=== PATIENT | male | born 1960 | race Caucasian/White ===

== ENCOUNTER → 2018-07-12 | Outpatient (CLI) | payer BC ==
--- NOTE | 2018-07-12 14:02 | US ---
EXAMINATION TYPE: US carotid duplex BILAT DATE OF EXAM: 07/12/2018 COMPARISON: NONE CLINICAL HISTORY: G45.9 Transient cerebral ischemic attack. Periods of Amaurosis fugax EXAM MEASUREMENTS: RIGHT: Peak Systolic Velocity (PSV) cm/sec ----- Right CCA: 93.8 ----- Right ICA: 81.0 ----- Right ECA: 110.5 ICA/CCA ratio: 0.9 RIGHT: End Diastole cm/sec ----- Right CCA: 28.8 ----- Right ICA: 37.0 ----- Right ECA: 110.5 LEFT: Peak Systolic Velocity (PSV) cm/sec ----- Left CCA: 115.1 ----- Left ICA: 63.6 ----- Left ECA: 123.9 ICA/CCA ratio: 0.6 LEFT: End Diastole cm/sec ----- Left CCA: 33.3 ----- Left ICA: 17.4 ----- Left ECA: 31.3 VERTEBRALS (direction of flow): Right Vertebral: Antegrade Left Vertebral: Antegrade Rhythm: Normal Mild amount of plaque visualized bilaterally. No elevated velocities visualized IMPRESSION: 1. Mild atherosclerotic changes with no significant hemodynamic stenosis. Criteria for Assigning % of Stenosis / Diameter reduction (Estimation based on the indirect measurements of the internal carotid artery velocities (ICA PSV). 1. Normal (no stenosis)=ICA PSV < 125 cm/s: ratio < 2.0: ICA EDV<40 cm/s. 2. Less than 50% stenosis=ICA PSV < 125 cm/s: ratio < 2.0: ICA EDV<40 cm/s. 3. 50 to 69% stenosis=ICA PSV of 125 to 230 cm/s: ration 2.0 ? 4.0: ICA EDV 40-100 cm/s. 4. Greater than 70% stenosis to near occlusion= ICA PSV > 230 cm/s: ratio > 4.0: ICA EDV > 100 cm/s. 5. Near occlusion= ICA PSV velocities may be low or undetectable: variable ratio and ICA EDV. 6. Total occlusion=unable to detect flow.
== END | disposition home or self-care (01) ==
LOC: RADUSWWP 12:15
PROVIDERS: ATTEND Family Medicine
DX: G45.9 Transient cerebral ischemic attack, unspecified (principal)
CPT/HCPCS: 93880; 95816

== ENCOUNTER 2018-07-13 19:25 | Emergency (ER) | payer BC ==
[2018-07-13 19:34] VITALS: RESP 18
[2018-07-13] MEDS ORDERED: DIPH,PERTUS(ACELL)TETVAC-LF 0.5 ML VIAL IM ONE (20:00)
[2018-07-13] MEDS ORDERED: MORPHINE SULFATE 4 MG/ML SYRINGE IM STA (20:00)
--- NOTE | 2018-07-13 20:16 | ED ---
General Adult HPI - General Chief complaint: Fall Stated complaint: Fell injury to chest area Time Seen by Provider: 07/13/18 19:30 Source: patient, RN notes reviewed Mode of arrival: ambulatory Limitations: no limitations - History of Present Illness Initial comments: This a 57-year-old male who presents to the emergency department complaining of having fallen last night. Patient states he tripped over a construction site that he didn't see because he was in the pitch black. Patient states he did not hit his head or neck has no head or neck pain today. Patient's main complaint is chest pain because he landed on a round metal object. Patient also has some abrasions and contusions to his legs and a superficial laceration of the distal aspect of the right leg. Patient states all of his lower extremity upper extremities move without pain and move full range of motion. Patient denies any shortness of breath. Patient states the chest pain hurts on the right lateral aspect in particular with deep breathing coughing or sneezing. Patient states the pain is also reproducible to palpation. - Related Data Home Medications Medication Instructions Recorded Confirmed Allopurinol [Zyloprim] 300 mg PO DAILY 07/13/18 07/13/18 Aspirin [Adult Low Dose Aspirin EC] 162 mg PO DAILY 07/13/18 07/13/18 Atenolol/Chlorthalidone 1 tab PO DAILY 07/13/18 07/13/18 [Atenolol-Chlorthalidone 50-25] Escitalopram [Lexapro] 10 mg PO DAILY 07/13/18 07/13/18 Gemfibrozil [Lopid] 600 mg PO BID 07/13/18 07/13/18 Multivitamins, Thera [Multivitamin 1 tab PO DAILY 07/13/18 07/13/18 (formulary)] Previous Rx's Medication Instructions Recorded Hydrocodone/Acetaminophen [[place] 1 each PO Q4HR PRN #14 tab 07/13/18 5-325] Allergies Allergy/AdvReac Type Severity Reaction Status Date / Time ibuprofen [From Advil] Allergy Rash/Hives Verified 07/13/18 20:08 Review of Systems ROS Statement: Those systems with pertinent positive or pertinent negative responses have been documented in the HPI. ROS Other: All systems not noted in ROS Statement are negative. Past Medical History Past Medical History: Hyperlipidemia, Hypertension History of Any Multi-Drug Resistant Organisms: None Reported Past Surgical History: No Surgical Hx Reported Past Psychological History: No Psychological Hx Reported Smoking Status: Never smoker Past Alcohol Use History: None Reported, Occasional Past Drug Use History: None Reported General Exam - General Exam Comments Initial Comments: GENERAL: Patient is well-developed and well-nourished. Patient is nontoxic and well- hydrated and is in mild distress. ENT: Neck is soft and supple. No significant lymphadenopathy is noted. Oropharynx is clear. Moist mucous membranes. Neck has full range of motion without eliciting any pain. EYES: The sclera were anicteric and conjunctiva were pink and moist. Extraocular movements were intact and pupils were equal round and reactive to light. Eyelids were unremarkable. PULMONARY: Unlabored respirations. Good breath sounds bilaterally. No audible rales rhonchi or wheezing was noted. CARDIOVASCULAR: There is a regular rate and rhythm without any murmurs gallops or rubs. Patient states she is of superficial abrasion from the right lateral to the anterior left chest wall it's significantly tender in the right lateral aspect at the level of the nipple. ABDOMEN: Soft and nontender with normal bowel sounds. No palpable organomegaly was noted. There is no palpable pulsatile mass. SKIN: Patient has multiple contusions to bilateral legs and a superficial laceration to the distal right leg. Appears to be healing fine NEUROLOGIC: Patient is alert and oriented x3. Cranial nerves II through XII are grossly intact. Motor and sensory are also intact. Normal speech, volume and content. Symmetrical smile. MUSCULOSKELETAL: Normal extremities with adequate strength and full range of motion. No lower extremity swelling or edema. No calf tenderness. LYMPHATICS: No significant lymphadenopathy is noted PSYCHIATRIC: Normal psychiatric evaluation. Limitations: no limitations Course Vital Signs 07/13/18 19:30 Temperature 98.5 F Pulse Rate 71 Respiratory 18 Rate Blood Pressure 132/89 O2 Sat by Pulse 98 Oximetry Disposition Clinical Impression: Rib fracture Disposition: HOME SELF-CARE Condition: Good Instructions: Rib Fracture (ED), Fall Prevention for Older Adults (ED) Prescriptions: Hydrocodone/Acetaminophen [[place] 5-325] 1 each PO Q4HR PRN #14 tab PRN Reason: Pain Is patient prescribed a controlled substance at d/c from ED?: Yes When asked, does pt state using other controlled substances?: No If prescribed controlled substance>3 days was MAPS reviewed?: Prescribed <3 Days If opioid is for acute pain is fill amount 7 days or less?: Yes If Rx opioid, was Start Talking consent form obtained?: Yes Referrals: Casey Bellamy MD [Primary Care Provider] - 1-2 days Time of Disposition: 20:49
--- NOTE | 2018-07-13 20:36 | XR ---
EXAMINATION TYPE: XR chest 2V DATE OF EXAM: 07/13/2018 COMPARISON: NONE HISTORY: Chest pain TECHNIQUE: Frontal and lateral views of the chest are obtained. FINDINGS: Heart and mediastinum are normal. Lungs are clear. Diaphragm is normal. Bony thorax appear s normal. IMPRESSION: Normal chest.
[2018-07-13 21:26] VITALS: BP 123/79; PULSE 64; TEMP 98.3
== END 2018-07-13 21:25 | disposition home or self-care (01) ==
LOC: EC 19:25
DX: S22.32XA Fracture of one rib, left side, initial encounter for closed fracture (principal); S81.811A Laceration without foreign body, right lower leg, initial encounter; S80.12XA Contusion of left lower leg, initial encounter; E78.5 Hyperlipidemia, unspecified; I10 Essential (primary) hypertension; Z23 Encounter for immunization; Z79.82 Long term (current) use of aspirin; Z79.899 Other long term (current) drug therapy; Z88.6 Allergy status to analgesic agent; W01.0XXA Fall on same level from slipping, tripping and stumbling without subsequent striking against object, initial encounter; Y92.89 Other specified places as the place of occurrence of the external cause
CPT/HCPCS: 71046; 90715; 99283; 90471; J2270

== ENCOUNTER 2023-02-15 08:51 | Inpatient (IN) | payer BC ==
[2023-02-15] MEDS ORDERED: ONDANSETRON 4 MG/2 ML VIAL IVP STA (09:25)
[2023-02-15] MEDS ORDERED: ASPIRIN 81 MG PO STA (09:25)
[2023-02-15] MEDS ORDERED: SODIUM CHLORIDE 0.9% 1,000 ML IV STA (09:25)
[2023-02-15] MEDS ORDERED: HYDROmorphone 1 MG/ML 1 ML SYRINGE IVP STA (09:25)
[2023-02-15] MEDS ORDERED: FAMOTIDINE 20 MG/2 ML VIAL IV STA (09:25)
--- NOTE | 2023-02-15 09:29 | ED ---
General Adult HPI - General Chief complaint: Chest Pain Stated complaint: rib pain Time Seen by Provider: 02/15/23 09:08 Source: patient, family, RN notes reviewed Mode of arrival: ambulatory Limitations: no limitations - History of Present Illness Initial comments: Patient is a pleasant 62-year-old male presenting to the emergency department concern for bilateral lower rib discomfort. Onset was while eating dinner last night. Discomfort has been persistent since that time. Discomfort is somewhat positional. Patient has had some nausea. No dyspnea however states it does hurt to take deep breaths. No diaphoresis. No history of similar symptoms previously. No fever. Patient states there is some discomfort of the back as well. - Related Data Home Medications Medication Instructions Recorded Confirmed Atenolol/Chlorthalidone 1 tab PO W/LUNCH 07/13/18 02/15/23 [Atenolol-Chlorthalidone 50-25] allopurinoL [Zyloprim] 300 mg PO W/LUNCH 07/13/18 02/15/23 Fenofibrate Nanocrystallized 145 mg PO W/LUNCH 02/15/23 02/15/23 [Fenofibrate] lisinopriL [Prinivil] 10 mg PO W/LUNCH 02/15/23 02/15/23 Allergies Allergy/AdvReac Type Severity Reaction Status Date / Time ibuprofen [From Advil] Allergy Rash/Hives Verified 02/15/23 11:16 Review of Systems ROS Statement: Those systems with pertinent positive or pertinent negative responses have been documented in the HPI. ROS Other: All systems not noted in ROS Statement are negative. Constitutional: Denies: fever, chills Eyes: Denies: eye pain ENT: Denies: ear pain Respiratory: Reports: as per HPI. Denies: cough Cardiovascular: Reports: as per HPI, chest pain Endocrine: Denies: fatigue Gastrointestinal: Reports: nausea. Denies: abdominal pain Genitourinary: Denies: dysuria Musculoskeletal: Reports: as per HPI Skin: Denies: rash Neurological: Denies: weakness Past Medical History Past Medical History: Hyperlipidemia, Hypertension History of Any Multi-Drug Resistant Organisms: None Reported Past Surgical History: No Surgical Hx Reported Past Psychological History: No Psychological Hx Reported Smoking Status: Never smoker Past Alcohol Use History: Occasional Past Drug Use History: None Reported General Exam Limitations: no limitations General appearance: alert Head exam: Present: normocephalic Eye exam: Present: normal appearance Neck exam: Present: normal inspection Respiratory exam: Present: normal lung sounds bilaterally, chest wall tenderness Cardiovascular Exam: Present: regular rate, normal rhythm Expanded Peripheral pulses: 2+: Dorsalis Pedis (R), Dorsalis Pedis (L) GI/Abdominal exam: Present: soft, tenderness (Moderate tenderness right upper quadrant). Absent: distended Extremities exam: Present: normal inspection. Absent: pedal edema, calf tenderness Back exam: Present: normal inspection. Absent: tenderness Neurological exam: Present: alert Psychiatric exam: Present: normal affect, normal mood Skin exam: Present: normal color Course Vital Signs 02/15/23 02/15/23 02/15/23 09:04 10:30 11:27 Temperature 99.2 F Pulse Rate 98 86 83 Respiratory 20 18 18 Rate Blood Pressure 110/76 133/84 138/95 O2 Sat by Pulse 94 L 93 L 96 Oximetry EKG Findings - EKG Results: EKG: interpreted by ERMD (Left axis. Inferior Q waves. Poor R-wave progres pepper. No acute ST change.), sinus rhythm Medical Decision Making - Medical Decision Making Was pt. sent in by a medical professional or institution (, PA, MUSIC VIDEO PRODUCER, urgent care, hospital, or prison...) When possible be specific @ -No Did you speak to anyone other than the patient for history (EMS, parent, family, police, friend...)? What history was obtained from this source @ - is present and helps provide history including onset while eating Did you review nursing and triage notes (agree or disagree)? Why? @ -I reviewed and agree with nursing and triage notes Were old charts reviewed (outside hosp., previous admission, EMS record, old EKG, old radiological studies, urgent care reports/EKG's, prison records)? Report findings @ -No old charts were reviewed Differential Diagnosis (chest pain, altered mental status, abdominal pain women, abdominal pain men, vaginal bleeding, weakness, fever, dyspnea, syncope, headache, dizziness, GI bleed, back pain, seizure, CVA, palpatations, mental health)? @ -Differential Chest Pain: Stable Angina, Unstable Angina, STEMI, NSTEMI Aortic Dissection, Pneumothorax, Musculoskeletal, Esophageal Spasm GERD, Cholecystitis, Pancreatitis, Zoster, this is not meant to be an all-inclusive list. EKG interpreted by me (3pts min.). @ -As above X-rays interpreted by me (1pt min.). @ -Chest x-ray shows nonspecific bilateral basilar changes. CT interpreted by me (1pt min.). @ -Computed tomography scan also took by myself that shows mediastinal air. U/S interpreted by me (1pt. min.). @ -Report reviewed What testing was considered but not performed or refused? (CT, X-rays, U/S, labs)? Why? @ -None What meds were considered but not given or refused? Why? @ -None Did you discuss the management of the patient with other professionals (professionals i.e. Dr., PA, MUSIC VIDEO PRODUCER, lab, RT, psych nurse, social psychologist, roentgenologist, teacher, corporate security officer, piano case and bench assembler)? Give summary @ -Case was discussed with Dr. Umana, who will admit covering Dr. Bellamy. He agrees with consult with cardiothoracic and GI Was smoking cessation discussed for >3mins.? @ -No Was critical care preformed (if so, how long)? @ -No Were there social determinants of health that impacted care today? How? (Homelessness, low income, unemployed, alcoholism, drug addiction, transportation, low edu. Level, literacy, decrease access to med. care, [facility], rehab)? @ -No Was there de-escalation of care discussed even if they declined (Discuss DNR or withdrawal of care, Hospice)? DNR status @ -No What co-morbidities impacted this encounter? (DM, HTN, Smoking, COPD, CAD, Cancer, CVA, ARF, Chemo, Hep., AIDS, mental health diagnosis, sleep apnea, morbid obesity)? @ -None Was patient admitted / discharged? Hospital course, mention meds given and ro [place], prescriptions, significant lab abnormalities, going to OR and other pertinent info. @ -Patient reevaluated and somewhat improved. Discomfort only with movement however severe that time. Patient is updated regarding results and plan. Patient will be admitted for further evaluation regarding pneumomediastinum Undiagnosed new problem with uncertain prognosis? @ -No Drug Therapy requiring intensive monitoring for toxicity (Heparin, Nitro, Insulin, Cardizem)? @ -No Were any procedures done? @ -No Diagnosis/symptom? @ -Pneumomediastinum Acute, or Chronic, or Acute on Chronic? @ -Acute Uncomplicated (without systemic symptoms) or Complicated (systemic symptoms)? @ -default Side effects of treatment? @ -No Exacerbation, Progression, or Severe Exacerbation? @ -No Poses a threat to life or bodily function? How? (Chest pain, [place], [place], pneumonia, PE, COPD, DKA, ARF, appy, cholecystitis, CVA, Diverticulitis, Homicidal, Suicidal, threat to staff... and all critical care pts) @ -No - Lab Data Result diagrams: 02/15/23 09:43 02/15/23 09:43 Lab Results 02/15/23 02/15/23 02/15/23 Range/Units 09:43 09:43 09:43 WBC 17.8 H (3.8-10.6) k/uL RBC 4.60 (4.30-5.90) m/uL Hgb 15.8 (13.0-17.5) gm/dL Hct 43.0 (39.0-53.0) % MCV 93.6 (80.0-100.0) fL MCH 34.5 (25.0-35.0) pg MCHC 36.8 (31.0-37.0) g/dL RDW 12.9 (11.5-15.5) % Plt Count 225 (150-450) k/uL MPV 8.2 Neutrophils % 89 % Lymphocytes % 5 % Monocytes % 5 % Eosinophils % 0 % Basophils % 0 % Neutrophils # 15.8 H (1.3-7.7) k/uL Lymphocytes # 0.8 L (1.0-4.8) k/uL Monocytes # 0.9 (0-1.0) k/uL Eosinophils # 0.1 (0-0.7) k/uL Basophils # 0.0 (0-0.2) k/uL PT 9.5 (9.0-12.0) sec INR 0.9 (<1.2) APTT 22.3 (22.0-30.0) sec D-Dimer 3.36 H (<0.60) mg/L FEU Sodium 130 L (137-145) mmol/L Potassium 3.7 (3.5-5.1) mmol/L Chloride 97 L (98-107) mmol/L Carbon Dioxide 22 (22-30) mmol/L Anion Gap 11 mmol/L BUN 17 (9-20) mg/dL Creatinine 0.81 (0.66-1.25) mg/dL Est GFR (CKD-EPI)AfAm >90 (>60 ml/min/1.73 sqM) Est GFR (CKD-EPI)NonAf >90 (>60 ml/min/1.73 sqM) Glucose 139 H (74-99) mg/dL Calcium 9.2 (8.4-10.2) mg/dL Magnesium 1.7 (1.6-2.3) mg/dL Total Bilirubin 1.7 H (0.2-1.3) mg/dL AST 32 (17-59) U/L ALT 26 (4-49) U/L Alkaline Phosphatase 40 (38-126) U/L Troponin I (0.000-0.034) ng/mL Total Protein 7.1 (6.3-8.2) g/dL Albumin 4.0 (3.5-5.0) g/dL Amylase 91 (30-110) U/L Lipase 21 L (23-300) U/L 02/15/23 Range/Units 09:43 WBC (3.8-10.6) k/uL RBC (4.30-5.90) m/uL Hgb (13.0-17.5) gm/dL Hct (39.0-53.0) % MCV (80.0-100.0) fL MCH (25.0-35.0) pg MCHC (31.0-37.0) g/dL RDW (11.5-15.5) % Plt Count (150-450) k/uL MPV Neutrophils % % Lymphocytes % % Monocytes % % Eosinophils % % Basophils % % Neutrophils # (1.3-7.7) k/uL Lymphocytes # (1.0-4.8) k/uL Monocytes # (0-1.0) k/uL Eosinophils # (0-0.7) k/uL Basophils # (0-0.2) k/uL PT (9.0-12.0) sec INR (<1.2) APTT (22.0-30.0) sec D-Dimer (<0.60) mg/L FEU Sodium (137-145) mmol/L Potassium (3.5-5.1) mmol/L Chloride (98-107) mmol/L Carbon Dioxide (22-30) mmol/L Anion Gap mmol/L BUN (9-20) mg/dL Creatinine (0.66-1.25) mg/dL Est GFR (CKD-EPI)AfAm (>60 ml/min/1.73 sqM) Est GFR (CKD-EPI)NonAf (>60 ml/min/1.73 sqM) Glucose (74-99) mg/dL Calcium (8.4-10.2) mg/dL Magnesium (1.6-2.3) mg/dL Total Bilirubin (0.2-1.3) mg/dL AST (17-59) U/L ALT (4-49) U/L Alkaline Phosphatase (38-126) U/L Troponin I <0.012 (0.000-0.034) ng/mL Total Protein (6.3-8.2) g/dL Albumin (3.5-5.0) g/dL Amylase (30-110) U/L Lipase (23-300) U/L Disposition Clinical Impression: Pneumomediastinum Disposition: ADMITTED IP TO THIS HOSP Is patient prescribed a controlled substance at d/c from ED?: No Referrals: Casey Bellamy MD [Primary Care Provider] - 1-2 days Time of Disposition: 12:48
--- NOTE | 2023-02-15 09:55 | XR ---
EXAMINATION TYPE: XR chest 2V DATE OF EXAM: 02/15/2023 COMPARISON: 07/13/2018 HISTORY: Chest pain and shortness of breath since last night, rib pain TECHNIQUE: Frontal and lateral views of the chest are obtained. FINDINGS: The heart size is normal. The pulmonary vasculature is within normal limits. There are new interstiti al and airspace opacities at the bilateral lower lung zones. There is no significant pleural effusion . There is no pneumothorax. IMPRESSION: Bibasilar airspace and interstitial opacities. This finding could relate to multifocal p neumonia or atelectasis. Recommend follow-up chest radiograph since 6-8 weeks to ensure complete reso lution.
[2023-02-15 09:57] LABS: Basophils % (A) 0 %; Eosinophils # (A) 0.1 k/uL (0-0.7); Eosinophils % (A) 0 %; HGB 15.8 gm/dL (13.0-17.5); Lymphocytes # (A) 0.8 k/uL (1.0-4.8); Lymphocytes % (A) 5 %; MCH 34.5 pg (25.0-35.0); MCHC 36.8 g/dL (31.0-37.0); MCV 93.6 fL (80.0-100.0); Mean Platelet Volume 8.2; Monocytes # (A) 0.9 k/uL (0-1.0); Monocytes % (A) 5 %; Neutrophils # (A) 15.8 k/uL (1.3-7.7); Neutrophils % (A) 89 %; Platelet Count 225 k/uL (150-450); RDW 12.9 % (11.5-15.5); WBC 17.8 k/uL (3.8-10.6)
[2023-02-15 10:13] LABS: ALT 26 U/L (4-49); AST 32 U/L (17-59); African American GFR (CKD) >90 (>60 ml/min/1.73 sqM); Alkaline Phosphatase 40 U/L (38-126); Amylase 91 U/L (30-110); Anion Gap 11 mmol/L; Blood Urea Nitrogen 17 mg/dL (9-20); Calcium 9.2 mg/dL (8.4-10.2); Carbon Dioxide 22 mmol/L (22-30); Chloride 97 mmol/L (98-107); Glucose 139 mg/dL (74-99); Lipase 21 U/L (23-300); Magnesium 1.7 mg/dL (1.6-2.3); Non-African American GFR(CKD) >90 (>60 ml/min/1.73 sqM); Potassium 3.7 mmol/L (3.5-5.1); Sodium 130 mmol/L (137-145); Total Bilirubin 1.7 mg/dL (0.2-1.3); Total Protein 7.1 g/dL (6.3-8.2)
[2023-02-15 10:20] LABS: INR 0.9 (<1.2); Partial Thromboplastin Time 22.3 sec (22.0-30.0); Prothrombin Time 9.5 sec (9.0-12.0)
--- NOTE | 2023-02-15 10:53 | US ---
EXAMINATION TYPE: US gallbladder DATE OF EXAM: 02/15/2023 COMPARISON: NONE CLINICAL INDICATION: Male, 62 years old with history of pain; Pain. TECHNIQUE: Multiple sonographic images of the right upper quadrant are obtained. FINDINGS: EXAM MEASUREMENTS: Liver Length: 16.3 cm Gallbladder Wall: 0.2 cm Right Kidney: 11.4 x 5.4 x 5.1 cm RADIOLOGY CLERK NOTES: Limited exam due to overlying bowel gas Pancreas: Obscured by bowel gas Liver: The liver demonstrates a noncirrhotic morphology. There is no obvious focal hepatic mass. Th ere is no intrahepatic biliary duct dilatation. Gallbladder: Multiple mobile echogenic foci. No wall thickening. Evidence for sonographic Quesada's sign: neg CBD: Obscured by overlying bowel gas Right Kidney: Lateral cortical anechoic lesion = 0.9 x 1.0 x 0.8 cm. This finding is most compatible with a tiny renal cyst. IMPRESSION: 1. Cholelithiasis without evidence of acute cholecystitis. 2. No acute sonographic abnormality identified.
--- NOTE | 2023-02-15 11:04 | CT ---
EXAMINATION TYPE: CT angio chest CT DLP: 482 mGycm, Automated exposure control for dose reduction was used. DATE OF EXAM: 02/15/2023 10:45 AM COMPARISON: Chest radiograph from same day. CLINICAL INDICATION:Male, 62 years old with history of cp; PE TECHNIQUE/CONTRAST: CTA scan of the thorax is performed with IV Contrast, patient injected with 75 mL of Isovue 370, pulm onary embolism protocol. MIP images are created and reviewed these are created on a separate worksta tion.. FINDINGS: Pulmonary Artery: There is no evidence for a filling defect within the pulmonary vasculature to sugge st acute pulmonary embolism. The pulmonary artery is of normal size. Lungs/Pleura: Trace bilateral pleural effusions right greater than left. Bibasilar atelectasis change s are noted. Mild pulmonary vascular prominence. No evidence for pneumothorax Airway: Large airways are patent. Heart: The heart is mildly enlarged for size. There is coronary artery calcifications. Vasculature: No evidence of aortic aneurysm. Mediastinum: No gross evidence of adenopathy. There is pneumomediastinum tracking up into the neck. Musculoskeletal: No acute osseous abnormalities Soft Tissues: Unremarkable. Lower neck: No significant findings. Upper Abdomen: No significant findings. IMPRESSION: 1. No evidence of pulmonary embolism. 2. Pneumomediastinum with gas tracking into the neck and down into the upper abdomen. Correlate for p erforated airway versus hollow viscus. 3. Cardiomegaly with trace bilateral pleural effusions, correlate with serum BNP for congestive heart failure. Findings communicated to Dr. Eliecer Aly DO on 02/15/2023 11:[address] Raymundo Lemos.
[2023-02-15] MEDS ORDERED: HYDROmorphone 0.5 MG/0.5 ML SYRINGE IVP PRN (12:51)
[2023-02-15] MEDS ORDERED: NALOXONE 0.4 MG/ML 1 ML VIAL IV PRN (12:51)
[2023-02-15] MEDS ORDERED: ONDANSETRON 4 MG/2 ML VIAL IVP PRN (12:51)
[2023-02-15] MEDS: SODIUM CHLORIDE 0.9% 1,000 ML IV SCH ×2 (13:22→19:45)
[2023-02-15] MEDS: PANTOPRAZOLE 40 MG/10 ML VIAL IV SCH (13:25)
[2023-02-15] MEDS ORDERED: AMPICILLIN-SULBACTAM 1.5 GM in SODIUM CHLORIDE 0.9% 50 ML IVPB ONE (13:30)
--- NOTE | 2023-02-15 17:25 | P.GSCN ---
History of Present Illness Consult date: 02/15/23 Reason for Consult: Pneumomediastinum Requesting physician: Kalani Escalona History of present illness: Patient is a 62's old gentleman with past medical history of hypertension hyperlipidemia and gout who was admitted to the emergency today with complaints of lower bilateral rib pain. Patient states that he had dinner last night and a restaurant where he had soup and Pasta and when he tried to drink subsequent to that he could not swallow. He subsequently started feeling bilateral lower chest pain. He denies nausea or vomiting, retching, coughing, sneezing that proceeded his symptoms. He is a nonsmoker with no prior pulmonary dysfunction. A CT a done in the emergency room this morning ruled out pulmonary embolism and showed evidence of pneumomediastinum tracking in the neck and even in the upper abdomen with no major pleural effusions. I was approached around 4:[address] ESCALONA from [facility] asking me my opinion regarding this case. It was evident that the patient require to start with Gastrografin swallow to rule out any obvious esophageal perforation. Patient denied any history of GERD and or previous dysphagia. Review of Systems Negative except for the history of present tenderness Past Medical History Past Medical History: Hyperlipidemia, Hypertension History of Any Multi-Drug Resistant Organisms: None Reported Past Surgical History: No Surgical Hx Reported Past Psychological History: No Psychological Hx Reported Smoking Status: Never smoker Past Alcohol Use History: Occasional Past Drug Use History: None Reported Medications and Allergies Home Medications Medication Instructions Recorded Confirmed Type Atenolol/Chlorthalidone 1 tab PO W/LUNCH 07/13/18 02/15/23 History [Atenolol-Chlorthalidone 50-25] allopurinoL [Zyloprim] 300 mg PO W/LUNCH 07/13/18 02/15/23 History Fenofibrate Nanocrystallized 145 mg PO W/LUNCH 02/15/23 02/15/23 History [Fenofibrate] lisinopriL [Prinivil] 10 mg PO W/LUNCH 02/15/23 02/15/23 History Allergies Allergy/AdvReac Type Severity Reaction Status Date / Time ibuprofen [From Advil] Allergy Rash/Hives Verified 02/15/23 11:16 Surgical - Exam Vital Signs Temp Pulse Resp BP Pulse Ox 99.2 F 98 20 110/76 94 L 02/15/23 09:04 02/15/23 09:04 02/15/23 09:04 02/15/23 09:04 02/15/23 09:04 Results - Labs 02/15/23 09:43 02/15/23 09:43 Abnormal Lab Results - Last 24 Hours (Table) 02/15/23 02/15/23 02/15/23 Range/Units 09:43 09:43 09:43 WBC 17.8 H (3.8-10.6) k/uL Neutrophils # 15.8 H (1.3-7.7) k/uL Lymphocytes # 0.8 L (1.0-4.8) k/uL D-Dimer 3.36 H (<0.60) mg/L FEU Sodium 130 L (137-145) mmol/L Chloride 97 L (98-107) mmol/L Glucose 139 H (74-99) mg/dL Total Bilirubin 1.7 H (0.2-1.3) mg/dL Lipase 21 L (23-300) U/L Diabetes panel 02/15/23 Range/Units 09:43 Sodium 130 L (137-145) mmol/L Potassium 3.7 (3.5-5.1) mmol/L Chloride 97 L (98-107) mmol/L Carbon Dioxide 22 (22-30) mmol/L BUN 17 (9-20) mg/dL Creatinine 0.81 (0.66-1.25) mg/dL Glucose 139 H (74-99) mg/dL Calcium 9.2 (8.4-10.2) mg/dL AST 32 (17-59) U/L ALT 26 (4-49) U/L Alkaline Phosphatase 40 (38-126) U/L Total Protein 7.1 (6.3-8.2) g/dL Albumin 4.0 (3.5-5.0) g/dL Calcium panel 02/15/23 Range/Units 09:43 Calcium 9.2 (8.4-10.2) mg/dL Albumin 4.0 (3.5-5.0) g/dL Pituitary panel 02/15/23 Range/Units 09:43 Sodium 130 L (137-145) mmol/L Potassium 3.7 (3.5-5.1) mmol/L Chloride 97 L (98-107) mmol/L Carbon Dioxide 22 (22-30) mmol/L BUN 17 (9-20) mg/dL Creatinine 0.81 (0.66-1.25) mg/dL Glucose 139 H (74-99) mg/dL Calcium 9.2 (8.4-10.2) mg/dL Adrenal panel 02/15/23 Range/Units 09:43 Sodium 130 L (137-145) mmol/L Potassium 3.7 (3.5-5.1) mmol/L Chloride 97 L (98-107) mmol/L Carbon Dioxide 22 (22-30) mmol/L BUN 17 (9-20) mg/dL Creatinine 0.81 (0.66-1.25) mg/dL Glucose 139 H (74-99) mg/dL Calcium 9.2 (8.4-10.2) mg/dL Total Bilirubin 1.7 H (0.2-1.3) mg/dL AST 32 (17-59) U/L ALT 26 (4-49) U/L Alkaline Phosphatase 40 (38-126) U/L Total Protein 7.1 (6.3-8.2) g/dL Albumin 4.0 (3.5-5.0) g/dL Assessment and Plan Assessment: Patient with pneumomediastinum. I was physically present when his Gastrografin swallow was performed. There is no evidence of extravasation and the contrast progresses normally to the stomach and beyond with no delay. This study cannot rule out microperforation. In any event, we'll await GI recommendation however I would recommend keeping the patient nothing by mouth with adequate hydration, antibiotic therapy, H2 blockers and follow him clinically. If he improves clinically by the morning he could theoretically be started on liquid and advance as tolerated. Repeat chest x-ray in the morning. Thank you for the privilege of this consultation (1) Pneumomediastinum Current Visit: Yes Status: Acute Code(s): J98.2 - INTERSTITIAL EMPHYSEMA SNOMED Code(s): 47645143 Time with Patient: Greater than 30
--- NOTE | 2023-02-15 17:45 | P.HPIM ---
History of Present Illness H&P Date: 02/15/23 62-year-old male with PMH of hypertension, dyslipidemia, gout presents the ED for abdominal pain that suddenly started yesterday around 6 PM. Patient was at a restaurant eating pasta when he noted sudden onset sharp and stabbing right upper quadrant abdominal pain that radiated across his abdomen. Pain was 10 out of 10 in severity. Pain is constant but eventually subsided. Overnight, he continued to experience abdominal discomfort which prompted him to go to the ED. He denies any excessive vomiting. He denies swallowing any hard or sharp objects. He is a lifelong nonsmoker. He currently reports abdominal pain that is 5 out of 10 in severity. He denies any headache, lower extremity edema, fever or chills, cough, chest pain, shortness of breath, palpitations, changes in urination or bowel habits. No changes in appetite or weight. He denies any dizziness, numbness/weakness/tingling of extremities. In the ED, his vital signs are stable, initially tachycardic in the high 90s. CBC showed leukocytosis of 17.8. Coagulation panel within normal limits. D-dimer elevated at 3.36. CMP showed sodium of 130, chloride of 97, glucose 139, total bilirubin of 1.7. Amylase and lipase within normal limits. Troponin less than 0.012. EKG showed sinus rhythm with ventricular rate of 94. Gallbladder ultrasound shows cholelithiasis without acute cholecystitis. CTA chest showed no PE, pneumomediastinum with gas tracking into the neck and down into the upper abdomen, cardiomegaly with trace bilateral pleural effusion. Patient is admitted for further workup of radiologic findings. Pertinent positives and negatives as discussed in HPI, a complete review of systems was performed and all other systems are negative. General: non toxic, no distress, appears at stated age Derm: warm, dry Head: atraumatic, normocephalic, symmetric Eyes: EOMI, no lid lag, anicteric sclera Mouth: no lip lesion, mucus membranes moist Cardiovascular: S1S2 reg, no murmur Lungs: CTA bilateral, no rhonchi, no rales , no accessory muscle use Abdominal: soft, nontender to palpation, no guarding, no appreciable organomegaly Ext: no gross muscle atrophy, no edema, no contractures Neuro: no focal neuro deficits Psych: Alert, oriented, appropriate affect Abdominal pain Pneumomediastinum Cholelithiasis SIRS Hyponatremia Elevated total bilirubin Based on my assessment of this patient, this patient meets a high complexity level of care. I have reviewed the following outside sales consultant notes: None. I have reviewed the results of the following tests: CBC showed leukocytosis of 17.8. Coagulation panel within normal limits. D- dimer elevated at 3.36. CMP showed sodium of 130, chloride of 97, glucose 139, total bilirubin of 1.7. Amylase and lipase within normal limits. Troponin less than 0.012. Gallbladder ultrasound shows cholelithiasis without acute cholecystitis. CTA chest showed no PE, pneumomediastinum with gas tracking into the neck and down into the upper abdomen, cardiomegaly with trace bilateral pleural effusion. I have ordered the following tests: Gastrografin esophagram. I have discussed the care of this patient with the following independent historian: None. I have independently interpreted the following test below: EKG showed sinus rhythm with ventricular rate of 94. I have discussed the management of this patient with the following physician: The case was discussed with Dr. Mcdonough around 4:30PM and Gastrografin esophagram was ordered. No obvious esophageal perforation was seen. This patient has a high risk of morbidity due to the following reasons: Patient has an acute diagnosis of pneumomediastinum that poses a threat to life or bodily function. The case was discussed with Dr. Mcdonough around 4:30PM and Gastrografin esophagram was ordered. No obvious esophageal perforation was seen. Patient be started on Protonix 40 mg IV daily. Pain control with Dilaudid 1 mg IV every 3 hours as needed for severe pain. Given his leukocytosis and the fact that he meets SIRS criteria, he will be empirically treated with Unasyn 1.5 g IV every 6 hours. Telemetry monitoring will be ordered. He'll be kept nothing by mouth. Cardiothoracic surgery, general surgery and gastroenterology is on board. We will hold any oral home medications at this time. Patient names his decision maker if he can't make decisions for himself. Patient would like to be full code. Past Medical History Past Medical History: Hyperlipidemia, Hypertension History of Any Multi-Drug Resistant Organisms: None Reported Past Surgical History: No Surgical Hx Reported Past Psychological History: No Psychological Hx Reported Smoking Status: Never smoker Past Alcohol Use History: Occasional Past Drug Use History: None Reported Medications and Allergies Home Medications Medication Instructions Recorded Confirmed Type Atenolol/Chlorthalidone 1 tab PO W/LUNCH 07/13/18 02/15/23 History [Atenolol-Chlorthalidone 50-25] allopurinoL [Zyloprim] 300 mg PO W/LUNCH 07/13/18 02/15/23 History Fenofibrate Nanocrystallized 145 mg PO W/LUNCH 02/15/23 02/15/23 History [Fenofibrate] lisinopriL [Prinivil] 10 mg PO W/LUNCH 02/15/23 02/15/23 History Allergies Allergy/AdvReac Type Severity Reaction Status Date / Time ibuprofen [From Advil] Allergy Rash/Hives Verified 02/15/23 11:16 Physical Exam Vitals: Vital Signs Temp Pulse Resp BP Pulse Ox 02/15/23 17:34 98.9 F 84 18 136/92 94 L 02/15/23 16:08 87 18 131/81 95 02/15/23 13:17 87 18 131/83 95 02/15/23 11:27 83 18 138/95 96 02/15/23 10:30 86 18 133/84 93 L 02/15/23 09:04 99.2 F 98 20 110/76 94 L Intake and Output 02/15/23 02/15/23 02/15/23 06:59 14:59 22:59 Other: Weight 95.254 kg Results CBC & Chem 7: 02/15/23 09:43 02/15/23 09:43 Labs: Abnormal Lab Results - Last 24 Hours (Table) 02/15/23 02/15/23 02/15/23 Range/Units 09:43 09:43 09:43 WBC 17.8 H (3.8-10.6) k/uL Neutrophils # 15.8 H (1.3-7.7) k/uL Lymphocytes # 0.8 L (1.0-4.8) k/uL D-Dimer 3.36 H (<0.60) mg/L FEU Sodium 130 L (137-145) mmol/L Chloride 97 L (98-107) mmol/L Glucose 139 H (74-99) mg/dL Total Bilirubin 1.7 H (0.2-1.3) mg/dL Lipase 21 L (23-300) U/L
--- NOTE | 2023-02-15 17:48 | FL ---
EXAMINATION TYPE: FL barium swallow DATE OF EXAM: 02/15/2023 5:35 PM COMPARISON: CTA chest of the same date. CLINICAL INDICATION:Male, 62 years old with history of rule out esophageal rupture - Gastrografin swa vicki; [facility], TECHNIQUE: The procedure was explained and patient history elicited. All patient questions were ans wered prior to start of procedure. Multiple spot fluoroscopic images of the esophagus were obtained a fter the oral ingestion of Gastrografin as the contrast agent. Fluoroscopic time: 27 seconds Fluoroscopic images: 173 FINDINGS: The esophagus demonstrates normal primary and secondary peristalsis. The esophageal mucosa is smooth without evidence of focal stricture, ulceration, or abnormal outpouching. No extravasation of contra st to suggest leak or obstruction identified within the esophagus or visualized portion of the proxim al stomach. IMPRESSION: No evidence for esophageal leak.
[2023-02-15] MEDS: HYDROmorphone 1 MG/ML 1 ML SYRINGE IVP PRN (18:18)
[2023-02-15] MEDS: AMPICILLIN-SULBACTAM 1.5 GM in SODIUM CHLORIDE 0.9% 50 ML IVPB SCH (20:05)
[2023-02-16] MEDS: HYDROmorphone 1 MG/ML 1 ML SYRINGE IVP PRN ×5 (00:10→22:23)
[2023-02-16] MEDS: AMPICILLIN-SULBACTAM 1.5 GM in SODIUM CHLORIDE 0.9% 50 ML IVPB SCH ×4 (01:03→21:12)
[2023-02-16] MEDS: SODIUM CHLORIDE 0.9% 1,000 ML IV SCH ×3 (03:30→19:58)
[2023-02-16 05:40] LABS: Basophils % (A) 0 %; Eosinophils % (A) 0 %; HCT 42.7 % (39.0-53.0); HGB 14.6 gm/dL (13.0-17.5); Lymphocytes # (A) 1.3 k/uL (1.0-4.8); Lymphocytes % (A) 9 %; MCH 33.3 pg (25.0-35.0); MCHC 34.1 g/dL (31.0-37.0); MCV 97.6 fL (80.0-100.0); Mean Platelet Volume 7.9; Monocytes # (A) 0.4 k/uL (0-1.0); Monocytes % (A) 3 %; Neutrophils # (A) 12.8 k/uL (1.3-7.7); Neutrophils % (A) 87 %; Platelet Count 202 k/uL (150-450); RBC 4.38 m/uL (4.30-5.90); RDW 12.3 % (11.5-15.5); WBC 14.7 k/uL (3.8-10.6)
[2023-02-16 05:51] LABS: ALT 21 U/L (4-49); AST 27 U/L (17-59); African American GFR (CKD) >90 (>60 ml/min/1.73 sqM); Albumin 3.7 g/dL (3.5-5.0); Alkaline Phosphatase 39 U/L (38-126); Anion Gap 7 mmol/L; Blood Urea Nitrogen 13 mg/dL (9-20); Calcium 8.8 mg/dL (8.4-10.2); Carbon Dioxide 27 mmol/L (22-30); Chloride 99 mmol/L (98-107); Glucose 117 mg/dL (74-99); Non-African American GFR(CKD) 85 (>60 ml/min/1.73 sqM); Potassium 3.9 mmol/L (3.5-5.1); Sodium 133 mmol/L (137-145); Total Bilirubin 1.1 mg/dL (0.2-1.3); Total Protein 6.5 g/dL (6.3-8.2)
--- NOTE | 2023-02-16 08:09 | XR ---
EXAMINATION TYPE: XR chest 1V portable DATE OF EXAM: 02/16/2023 CLINICAL HISTORY: Pneumomediastinum progress study. TECHNIQUE: Single AP portable upright view of the chest is obtained. COMPARISON: Chest CT from one day earlier FINDINGS: Pneumomediastinum on the recent chest CT left is less well seen on x-ray. Bibasilar opacit ies with small bilateral pleural effusions remain present. No pneumothorax is evident bilaterally.Mil d cardiomegaly is seen. Osseous structures are intact. IMPRESSION: As above.
[2023-02-16] MEDS: PANTOPRAZOLE 40 MG/10 ML VIAL IV SCH (09:12)
--- NOTE | 2023-02-16 10:24 | P.PN ---
Subjective Progress Note Date: 02/16/23 Principal diagnosis: Pneumomediastinum, abdominal pain. Previous medical history of hypertension, hyperlipidemia, gout The patient was seen and examined this morning sitting up on a bed in the emergency room. He does continue to complain of abdominal pain which seems to be more on the right side of his chest this morning, partially relieved with IV Dilaudid. The patient was seen by Dr. Mcdonough yesterday, Gastrografin swallow study was performed demonstrating no evidence of extravasation. Discussed with Dr. Mcdonough again this morning, no surgical intervention warranted from cardiothoracic surgery standpoint. Patient is waiting to be seen by GI for further recommendations. Objective - Vital Signs Vital signs: Vital Signs Temp 99.3 F 02/16/23 07:35 Pulse 85 02/16/23 07:35 Resp 18 02/16/23 07:35 BP 119/75 02/16/23 07:35 Pulse Ox 93 L 02/16/23 07:35 FiO2 Intake & Output 02/15/23 02/16/23 02/16/23 18:59 06:59 18:59 Weight 95.254 kg - Exam CONSTITUTIONAL: Appears comfortable, cooperative, no acute distress although just received IV Dilaudid per the patient RESPIRATORY: Lungs sounds diminished bilaterally. Respirations even, nonlabored. Currently on 2 L nasal cannula with oxygen saturation in the mid 90s CARDIOVASCULAR: S1, S2 present. Regular rate and rhythm, sinus rhythm on telemetry. Palpable peripheral pulses bilaterally. No edema present. GASTROINTESTINAL: Abdomen soft, tender to palpation occasionally, nondistended. Hypoactive bowel sounds present. Currently NPO GENITOURINARY: Able to void INTEGUMENTARY: Skin is warm and dry NEUROLOGIC: Cranial nerves II through XII intact MUSKULOSKELETAL: Able to move all extremities, strength equal bilaterally PSYCHIATRIC: Alert and oriented to person place and time, appropriate affect, intact judgment and insight - Labs CBC & Chem 7: 02/16/23 05:09 02/16/23 05:09 Labs: Abnormal Lab Results - Last 24 Hours (Table) 02/15/23 02/15/23 02/16/23 Range/Units 09:43 09:43 05:09 WBC 14.7 H (3.8-10.6) k/uL Neutrophils # 12.8 H (1.3-7.7) k/uL D-Dimer 3.36 H (<0.60) mg/L FEU Sodium 130 L (137-145) mmol/L Chloride 97 L (98-107) mmol/L Glucose 139 H (74-99) mg/dL Total Bilirubin 1.7 H (0.2-1.3) mg/dL Lipase 21 L (23-300) U/L 02/16/23 Range/Units 05:09 WBC (3.8-10.6) k/uL Neutrophils # (1.3-7.7) k/uL D-Dimer (<0.60) mg/L FEU Sodium 133 L (137-145) mmol/L Chloride (98-107) mmol/L Glucose 117 H (74-99) mg/dL Total Bilirubin (0.2-1.3) mg/dL Lipase (23-300) U/L Assessment and Plan Assessment: Pneumomediastinum Abdominal pain History of hypertension Hyperlipidemia Gout Plan: No surgical intervention from our services May consider starting clear liquids, will defer to GI recommendations Pain control per current medication regimen Chest x-ray reviewed Increase activity as tolerated Continue antibiotics, H2 blockers Medical management of other comorbidities per internal medicine, GI service Will continue to follow and make further recommendations as appropriate
--- NOTE | 2023-02-16 13:19 | P.GSCN ---
History of Present Illness Consult date: 02/16/23 History of present illness: CHIEF COMPLAINT: Pain across lower rib cage HISTORY OF PRESENT ILLNESS: This is a 62-year-old male who presented to the hospital with complaints of pain below the rib cage bilaterally that radiated around his back. Patient reports symptoms started on Wednesday. He denies any nausea or vomiting. Denies any fever chills or sweats. He had a CT of the chest which had shown no evidence of PE but did reveal a pneumomediastinum with gas tracking into the neck and down into the upper abdomen. Patient was seen by cardiothoracic team. No surgical intervention planned. Patient denies any significant vomiting or coughing to contribute to these findings. Patient had barium swallow site with no evidence of esophageal leak. Patient denies any chest pain or shortness breath. Patient did have an ultrasound that show evidence of cholelithiasis. Surgical service was consulted regarding gallstones. Patient seen and examined with Dr. satnana PAST MEDICAL HISTORY: See below PAST SURGICAL HISTORY: See below MEDICATIONS: See below ALLERGIES: See below SOCIAL HISTORY: No illicit drug use. REVIEW OF SYSTEMS: CONSTITUTIONAL: Denies fever or chills. HEENT: Denies blurred vision, vision changes, or eye pain. Denies hemoptysis CARDIOVASCULAR: Denies chest pain or pressure. RESPIRATORY: No shortness of breath. GASTROINTESTINAL: See HPI for pertinent findings HEMATOLOGIC: Denies bleeding disorders. GENITOURINARY: Denies any blood in urine or increased urinary frequency. SKIN: Denies pruitis. Denies rash. PHYSICAL EXAM: VITAL SIGNS: Reviewed GENERAL: Well-developed in no acute distress. HEENT: No sclera icterus. Extraocular movements grossly intact. Moist buccal mucosa. Head is atraumatic, normocephalic. No nasal drainage. ABDOMEN: Soft. Nondistended. Patient does have tenderness across the upper abdomen NEUROLOGIC: Alert and oriented. Cranial nerves II through XII grossly intact. LABORATORY DATA: WBC 17.8 down to 14.7 Hgb 14.6 platelets 202 Sodium 133 potassium 3.9 creatinine 0.95 Total bili 1.7 at 1.1 AST 27 ALT 21 alk phos 39 IMAGING: Ultrasound shows evidence of cholelithiasis without evidence of acute cholecystitis Chest CTA no evidence of PE. Pneumomediastinum with gas tracking into the neck and down into the upper abdomen. Correlate for perforated area versus hollow viscus. Cardiomegaly with trace bilateral pleural effusions. Correlate with serum BNP for congestive heart failure. ASSESSMENT: 1. Symptomatic gallstones with evidence of cholelithiasis on ultrasound 2. Upper abdominal pain 3. Pneumomediastinum PLAN: -Patient scheduled for laparoscopic cholecystectomy tomorrow with Dr. Santana -Okay to start clear liquids -Nothing by mouth after midnight -Continue supportive care -Continue antibiotics -Case discussed with cardiothoracic and GI service and they've cleared patient to proceed with surgery Thank you for this consultation Physician Industrial Waste Treatment Technician note has been reviewed by physician. Signing provider agrees with the documented findings, assessment, and plan of care. Past Medical History Past Medical History: Hyperlipidemia, Hypertension History of Any Multi-Drug Resistant Organisms: None Reported Past Surgical History: No Surgical Hx Reported Past Psychological History: No Psychological Hx Reported Smoking Status: Never smoker Past Alcohol Use History: Occasional Past Drug Use History: None Reported Medications and Allergies Home Medications Medication Instructions Recorded Confirmed Type Atenolol/Chlorthalidone 1 tab PO W/LUNCH 07/13/18 02/15/23 History [Atenolol-Chlorthalidone 50-25] allopurinoL [Zyloprim] 300 mg PO W/LUNCH 07/13/18 02/15/23 History Fenofibrate Nanocrystallized 145 mg PO W/LUNCH 02/15/23 02/15/23 History [Fenofibrate] lisinopriL [Prinivil] 10 mg PO W/LUNCH 02/15/23 02/15/23 History Allergies Allergy/AdvReac Type Severity Reaction Status Date / Time ibuprofen [From Advil] Allergy Rash/Hives Verified 02/15/23 11:16 Surgical - Exam Vital Signs Temp Pulse Resp BP Pulse Ox 99.2 F 98 20 110/76 94 L 02/15/23 09:04 02/15/23 09:04 02/15/23 09:04 02/15/23 09:04 02/15/23 09:04 Results - Labs 02/16/23 05:09 02/16/23 05:09 Abnormal Lab Results - Last 24 Hours (Table) 02/16/23 02/16/23 Range/Units 05:09 05:09 WBC 14.7 H (3.8-10.6) k/uL Neutrophils # 12.8 H (1.3-7.7) k/uL Sodium 133 L (137-145) mmol/L Glucose 117 H (74-99) mg/dL Diabetes panel 02/16/23 Range/Units 05:09 Sodium 133 L (137-145) mmol/L Potassium 3.9 (3.5-5.1) mmol/L Chloride 99 (98-107) mmol/L Carbon Dioxide 27 (22-30) mmol/L BUN 13 (9-20) mg/dL Creatinine 0.95 (0.66-1.25) mg/dL Glucose 117 H (74-99) mg/dL Calcium 8.8 (8.4-10.2) mg/dL AST 27 (17-59) U/L ALT 21 (4-49) U/L Alkaline Phosphatase 39 (38-126) U/L Total Protein 6.5 (6.3-8.2) g/dL Albumin 3.7 (3.5-5.0) g/dL Calcium panel 02/16/23 Range/Units 05:09 Calcium 8.8 (8.4-10.2) mg/dL Albumin 3.7 (3.5-5.0) g/dL Pituitary panel 02/16/23 Range/Units 05:09 Sodium 133 L (137-145) mmol/L Potassium 3.9 (3.5-5.1) mmol/L Chloride 99 (98-107) mmol/L Carbon Dioxide 27 (22-30) mmol/L BUN 13 (9-20) mg/dL Creatinine 0.95 (0.66-1.25) mg/dL Glucose 117 H (74-99) mg/dL Calcium 8.8 (8.4-10.2) mg/dL Adrenal panel 02/16/23 Range/Units 05:09 Sodium 133 L (137-145) mmol/L Potassium 3.9 (3.5-5.1) mmol/L Chloride 99 (98-107) mmol/L Carbon Dioxide 27 (22-30) mmol/L BUN 13 (9-20) mg/dL Creatinine 0.95 (0.66-1.25) mg/dL Glucose 117 H (74-99) mg/dL Calcium 8.8 (8.4-10.2) mg/dL Total Bilirubin 1.1 (0.2-1.3) mg/dL AST 27 (17-59) U/L ALT 21 (4-49) U/L Alkaline Phosphatase 39 (38-126) U/L Total Protein 6.5 (6.3-8.2) g/dL Albumin 3.7 (3.5-5.0) g/dL
--- NOTE | 2023-02-16 13:30 | P.CONS ---
History of Present Illness - Reason for Consult Consult date: 02/16/23 Pneumomediastinum Requesting physician: Eliecer Aly - Chief Complaint RIb pain - History of Present Illness Patient is a pleasant 62-year-old male who presented to the emergency department yesterday afternoon with complaints of rib pain. Past medical history includes hyperlipidemia and hypertension. He states pain became very severe it was wrapping around his entire chest and back but then more prominent on the right side. He denies any recent trauma, no strenuous activity. He denies any recent illness or coughing. Patient had a chest x-ray that reported bibasilar airspace and interstitial opacities. Finding could relate to multifocal pneumonia or atelectasis. He then underwent gallbladder ultrasound with findings of cholelithiasis without acute cholecystitis. CT angiogram chest was negative for pulmonary embolism but did show pneumomediastinum with gas tracking into the neck and down into the upper abdomen. Correlate for perforated airway versus hollow viscus. Cardiomegaly with trace bilateral pleural effusions, correlate with serum BNP for congestive heart failure. Cardiothoracic surgery was consulted they had ordered a barium swallow that showed no evidence for esophageal leak. Gastroenterology was consulted for pneumo mediastinum evaluate esophagus or other cause. Patient denies any history of acid reflux, no history of peptic ulcer disease, he has no difficulty swallowing. Denies any pain with swallowing no decreased appetite recently. Oxygen saturation 93 with 2 L nasal cannula. He is currently denying any shortness of breath or chest pain. Denies any abdominal pain or epigastric pain. No nausea or vomiting. Labs WBC 14.7, hemoglobin 14.6 hematocrit 42 platelet count 202 total bilirubin 1.1 AST 27 ALT 21 alkaline phosphatase 39 Review of Systems REVIEW OF SYSTEMS: CARDIOPULMONARY: No chest pain or shortness of breath. Patient reporting bilateral rib pain, right greater than left. Gastrointestinal: Nosensation in epigastric region, no associated abdominal pain. No nausea or vomiting. No hematemesis, coffee-ground emesis. No rectal bleeding, or melena. GENITOURINARY: No dysuria or hematuria. MUSCULOSKELETAL: Reports normal range of motion. SKIN: No rashes. No jaundice. ENDOCRINE: No chills, fevers. No excessive weight gain or loss. No polydipsia or polyuria. PSYCHIATRIC: Unremarkable. NEUROLOGY: No change in mental status. Denies dizziness, headache. ENT: Vision unremarkable. CONSTITUTIONAL: No recent weight loss. No fever, chills, night sweats. Past Medical History Past Medical History: Hyperlipidemia, Hypertension History of Any Multi-Drug Resistant Organisms: None Reported Past Surgical History: No Surgical Hx Reported Past Psychological History: No Psychological Hx Reported Smoking Status: Never smoker Past Alcohol Use History: Occasional Past Drug Use History: None Reported Medications and Allergies Home Medications Medication Instructions Recorded Confirmed Type Atenolol/Chlorthalidone 1 tab PO W/LUNCH 07/13/18 02/15/23 History [Atenolol-Chlorthalidone 50-25] allopurinoL [Zyloprim] 300 mg PO W/LUNCH 07/13/18 02/15/23 History Fenofibrate Nanocrystallized 145 mg PO W/LUNCH 02/15/23 02/15/23 History [Fenofibrate] lisinopriL [Prinivil] 10 mg PO W/LUNCH 02/15/23 02/15/23 History Allergies Allergy/AdvReac Type Severity Reaction Status Date / Time ibuprofen [From Advil] Allergy Rash/Hives Verified 02/15/23 11:16 Physical Exam Vitals: Vital Signs Temp Pulse Resp BP Pulse Ox 02/16/23 07:35 99.3 F 85 18 119/75 93 L 02/16/23 06:00 79 18 115/67 95 02/16/23 04:00 93 18 130/74 96 02/16/23 00:13 97.9 F 92 18 136/78 95 02/16/23 00:00 89 18 95 02/15/23 22:00 82 16 133/94 95 02/15/23 17:34 98.9 F 84 18 136/92 94 L 02/15/23 16:08 87 18 131/81 95 General appearance: The patient is alert, oriented, appears in no acute distress. HET: Head is normocephalic and atraumatic. Conjunctiva pink. Sclera anicteric. Neck: Supple without lymphadenopathy. Trachea midline. Heart: S1 S2. Regular rate and rhythm. Lungs: Clear to auscultation. Chest: Patient with tenderness along bilateral ribs wrapping around to his back and intercostal spaces. Abdomen: Soft, nontender, nondistended with bowel sounds. No guarding or rigidity. Skin: No rashes. No jaundice. Extremities: Normal skin color and turgor. No pedal edema. Neurological: No focal deficits. Alert and oriented x3. Results CBC & Chem 7: 02/16/23 05:09 02/16/23 05:09 Labs: Abnormal Lab Results - Last 24 Hours (Table) 02/16/23 02/16/23 Range/Units 05:09 05:09 WBC 14.7 H (3.8-10.6) k/uL Neutrophils # 12.8 H (1.3-7.7) k/uL Sodium 133 L (137-145) mmol/L Glucose 117 H (74-99) mg/dL Assessment and Plan (1) Pneumomediastinum Narrative/Plan: 62-year-old male who presented with bilateral rib pain right greater than left with the findings on CT angiogram of pneumomediastinum as well as a chest x-ray showing bibasilar airspace and interstitial opacities. This patient who denies any recent trauma, no recent illness or coughing. No associated abdominal pain nausea or vomiting. No history of acid reflux or excessive GERD. No regular NSAID use. Unclear etiology of pneumomediastinum. He underwent barium swallow that shows no evidence of esophageal leak. Cardiothoracic surgery following, continue to follow their recommendations. No plans on EGD. Apparently patient is scheduled for cholecystectomy tomorrow for cholelithiasis. Current Visit: Yes Status: Acute Code(s): J98.2 - INTERSTITIAL EMPHYSEMA SNOMED Code(s): 06104498 Plan: 1. Continue symptomatic and supportive care 2. Patient may try a clear liquid diet 3. Continue with recommendations from cardiothoracic surgery 4. Protonix 40 mg daily 5. No plans on EGD at this time 6. Continue medical management per primary medical team Thank you for this consultation, we will continue to follow. Dr. Erica Charles I agree with the dictator's note, documented as a scribe by Mily Albert.
--- NOTE | 2023-02-16 14:06 | P.PN ---
Subjective Progress Note Date: 02/16/23 Hospital Course: 62-year-old male with PMH of hypertension, dyslipidemia, gout presents the ED for abdominal pain that suddenly started yesterday around 6 PM. In the ED, his vital signs are stable, initially tachycardic in the high 90s. CBC showed leukocytosis of 17.8. Coagulation panel within normal limits. D-dimer elevated at 3.36. CMP showed sodium of 130, chloride of 97, glucose 139, total bilirubin of 1.7. Amylase and lipase within normal limits. Troponin less than 0.012. EKG showed sinus rhythm with ventricular rate of 94. Gallbladder ultrasound shows cholelithiasis without acute cholecystitis. CTA chest showed no PE, pneumomediastinum with gas tracking into the neck and down into the upper abdomen, cardiomegaly with trace bilateral pleural effusion. Patient is admitted for further workup of radiologic findings. GI, CT surgery, and Gen. surgery following. Subjective: Patient seen and examined at bedside. No acute events overnight. He continues to have bilateral lower chest pain, and some upper abdominal pain bilaterally. He denies any shortness of breath, palpitations, nausea, vomiting, diarrhea, constipation, or urinary complaints. Pertinent positives and negatives as discussed above, a complete review of systems was performed and all other systems are negative. Vitals Signs Reviewed. General: nontoxic, no distress, appears at stated age Derm: warm, dry Head: atraumatic, normocephalic, symmetric Eyes: EOMI, no lid lag, anicteric sclera Mouth: no lip lesion, mucus membranes moist Cardiovascular: S1S2 reg, no murmur Lungs: CTA bilateral, no rhonchi, no rales , no accessory muscle use, supplemental oxygen Abdominal: soft, nontender to palpation, no guarding, no appreciable organomegaly Ext: no gross muscle atrophy, no edema, no contractures Neuro: CN II-XI grossly intact, no focal neuro deficits Psych: Alert, oriented, appropriate affect Data Reviewed Today: Pertinent Labs: WBC 14.7, hemoglobin 14.6, sodium 133, creatinine 0.95, total bilirubin 1.1, AST 27, ALT 21, ALP 39 Imaging: Chest x-ray personally interpreted, does not show any pneumothorax., Bilateral pleural effusions Assessment and Plan: Active: Pneumomediastinum Pleural effusions bilateral Cholelithiasis SIRS Hyponatremia -Thoracic surgery noted reviewed, no surgical interventions -GI note reviewed, continue supportive care, may try clear liquid diet, Protonix 40 mg daily, no plans for EGD -Personally discussed management with surgery, we'll get a HIDA scan to rule out cholecystitis, ordered -Bilateral pleural effusions possibly in the setting of pneumomediastinum -Pain control with IV Dilaudid as needed -Continue Unasyn 1.5 g every 6 hours IV -Hyponatremia likely hypovolemic, continue sodium chloride 1 30 mL an hour -Repeat CBC and CMP tomorrow Resolved: Elevated total bilirubin Chronic: Hypertension Dyslipidemia Gout DVT ppx: Subcu heparin Code status: Full code Anticipated discharge place: Pending Clinical course Anticipated discharge time: Pending clinical course Objective - Vital Signs Vital signs: Vital Signs Temp 99.3 F 02/16/23 07:35 Pulse 85 02/16/23 07:35 Resp 18 02/16/23 07:35 BP 119/75 02/16/23 07:35 Pulse Ox 93 L 02/16/23 07:35 FiO2 Intake & Output 02/15/23 02/16/23 02/16/23 18:59 06:59 18:59 Weight 95.254 kg - Labs CBC & Chem 7: 02/16/23 05:09 02/16/23 05:09 Labs: Abnormal Lab Results - Last 24 Hours (Table) 02/16/23 02/16/23 Range/Units 05:09 05:09 WBC 14.7 H (3.8-10.6) k/uL Neutrophils # 12.8 H (1.3-7.7) k/uL Sodium 133 L (137-145) mmol/L Glucose 117 H (74-99) mg/dL
[2023-02-16] MEDS: HEPARIN SODIUM,PORCINE/PF 5,000 UNIT/0.5 ML SYRINGE SQ SCH ×2 (15:24→23:40)
[2023-02-17] MEDS: AMPICILLIN-SULBACTAM 1.5 GM in SODIUM CHLORIDE 0.9% 50 ML IVPB SCH ×4 (02:20→20:09)
[2023-02-17] MEDS: SODIUM CHLORIDE 0.9% 1,000 ML IV SCH ×3 (04:31→17:14)
[2023-02-17] MEDS: PANTOPRAZOLE 40 MG/10 ML VIAL IV SCH (10:13)
[2023-02-17] MEDS: HYDROmorphone 1 MG/ML 1 ML SYRINGE IVP PRN ×2 (10:13→20:07)
--- NOTE | 2023-02-17 10:17 | NM ---
EXAMINATION TYPE: NM hepatobiliary w CCK DATE OF EXAM: 02/17/2023 COMPARISON: NONE HISTORY: Possible cholecystitis TECHNIQUE: After the intravenous administration of 4.8 mCi Tc 99m Mebrofenin hepatobiliary scintigrap hy is performed. Immediate images post injection. FINDINGS: There is satisfactory initial accumulation of tracer by the liver. The gallbladder is visualized wit hin 90 minutes. The small bowel activity is noted within 5 minutes. At one hour CCK was administere d, patient was injected with 1.9 mcg of Kinevac, and gallbladder ejection fraction is calculated at 1 9 percent. IMPRESSION: 1. No cystic duct obstruction to suggest acute cholecystitis. 2. Gallbladder dyskinesia with ejection fraction of 19%.
--- NOTE | 2023-02-17 10:29 | P.PN ---
Subjective Progress Note Date: 02/17/23 Principal diagnosis: Pneumomediastinum, abdominal pain. Previous medical history of hypertension, hyperlipidemia, gout The patient was seen and examined this morning sitting up on a bed on the cardiac step down unit with at bedside. He does continue to complain of abdominal pain, partially relieved with IV Dilaudid. No surgical intervention warranted from cardiothoracic surgery standpoint. HIDA scan ordered by internal medicine, patient to have lap cornell by general surgery today Objective - Vital Signs Vital signs: Vital Signs Temp 97.9 F 02/17/23 04:00 Pulse 88 02/17/23 04:00 Resp 16 02/17/23 04:00 BP 123/73 02/17/23 04:00 Pulse Ox 98 02/17/23 04:00 FiO2 Intake & Output 02/16/23 02/17/23 02/17/23 18:59 06:59 18:59 Intake Total 480 Balance 480 Weight 95.254 kg Intake: Oral 480 Other: Voiding Method Toilet # Voids 2 - Exam CONSTITUTIONAL: Appears comfortable, cooperative, no acute distress RESPIRATORY: Lungs sounds diminished bilaterally. Respirations even, nonl abored. Currently on room air with oxygen saturation 98% CARDIOVASCULAR: S1, S2 present. Regular rate and rhythm, sinus rhythm on telemetry. Palpable peripheral pulses bilaterally. No edema present. GASTROINTESTINAL: Abdomen soft, tender to palpation occasionally, nondistended. Hypoactive bowel sounds present. Currently NPO GENITOURINARY: Able to void INTEGUMENTARY: Skin is warm and dry NEUROLOGIC: Cranial nerves II through XII intact MUSKULOSKELETAL: Able to move all extremities, strength equal bilaterally PSYCHIATRIC: Alert and oriented to person place and time, appropriate affect, intact judgment and insight - Allied health notes Allied health notes reviewed: nursing - Labs CBC & Chem 7: 02/16/23 05:09 02/16/23 05:09 Labs: Microbiology - Last 24 Hours (Table) 02/15/23 13:35 Blood Culture - Preliminary Blood No Growth after 24 hours 02/15/23 13:20 Blood Culture - Preliminary Blood No Growth after 24 hours Assessment and Plan Assessment: Pneumomediastinum Abdominal pain History of hypertension Hyperlipidemia Gout Plan: No surgical intervention from our services Pain control per current medication regimen Chest x-ray reviewed Increase activity as tolerated Continue antibiotics, H2 blockers Medical management of other comorbidities per internal medicine, GI service Will sign off. Please call us/reconsult if needed
[2023-02-17] MEDS ORDERED: LACTATED RINGERS 1,000 ML IV SCH (10:54)
[2023-02-17] MEDS ORDERED: SODIUM CHLORIDE 0.9% 500 ML IV ONE (11:03)
[2023-02-17] MEDS ORDERED: ONDANSETRON 4 MG/2 ML VIAL IVP ONE (11:12)
[2023-02-17] MEDS ORDERED: DEXAMETHASONE SOD PHOSPHATE 4 MG/ML 1 ML VIAL IVP ONE (11:12)
[2023-02-17] MEDS ORDERED: HEPARIN SODIUM,PORCINE 5,000 UNIT/ML 1 ML VIAL SQ ONE (11:13)
[2023-02-17] MEDS: HEPARIN SODIUM,PORCINE/PF 5,000 UNIT/0.5 ML SYRINGE SQ SCH ×2 (11:56→16:00)
[2023-02-17] MEDS ORDERED: GLYCOPYRROLATE 0.2 MG/ML 2 ML VIAL ONE (12:22)
[2023-02-17] MEDS ORDERED: LIDOCAINE 2% INJ 20 MG/ML (2 ML VIAL) ONE (12:22)
[2023-02-17] MEDS ORDERED: KETAMINE 10 MG/ML 20 ML VIAL ONE (12:22)
[2023-02-17] MEDS ORDERED: PROPOFOL 10 MG/ML 20 ML VIAL IV ONE (12:22)
[2023-02-17] MEDS ORDERED: INDOCYANINE GREEN 25 MG VIAL IV ONE (12:22)
[2023-02-17] MEDS ORDERED: SUCCINYLCHOLINE CHLORIDE 200 MG/10 ML VIAL IV ONE (12:22)
[2023-02-17] MEDS ORDERED: fentaNYL (PF) 50 MCG/ML 2 ML AMP ONE (12:22)
[2023-02-17] MEDS ORDERED: MIDAZOLAM 2 MG/2 ML VIAL ONE (12:22)
[2023-02-17] MEDS ORDERED: HYDROmorphone (PF) 1 MG/ML ONE (12:22)
[2023-02-17] MEDS ORDERED: ROCURONIUM 10 MG/ML (5 ML VIAL) IV ONE (12:22)
[2023-02-17] MEDS ORDERED: NEOSTIGMINE 1 MG/ML 10 ML VIAL ONE (12:22)
[2023-02-17] MEDS ORDERED: lisinopriL 10 MG TAB PO SCH (12:30)
[2023-02-17] MEDS ORDERED: allopurinoL 300 MG TAB PO SCH (12:30)
[2023-02-17] MEDS ORDERED: atenoloL 50 MG TAB PO SCH (12:30)
[2023-02-17] MEDS ORDERED: FENOFIBRATE 160 MG TAB PO SCH (12:30)
[2023-02-17] MEDS ORDERED: CHLORTHALIDONE 25 MG TAB PO SCH (12:30)
[2023-02-17] MEDS ORDERED: BUPIVACAIN-EPI 0.25%-1:200,000 30 ML VIAL SQ ONE (12:52)
[2023-02-17] MEDS ORDERED: LACTATED RINGERS 1,000 ML IV ONE (13:18)
--- NOTE | 2023-02-17 13:53 | P.PN ---
Subjective Progress Note Date: 02/17/23 Principal diagnosis: Pneumomediatinum Patient is a pleasant 62-year-old male who presented to the emergency department yesterday afternoon with complaints of rib pain. Past medical history includes hyperlipidemia and hypertension. He states pain became very severe it was wrap ping around his entire chest and back but then more prominent on the right side. He denies any recent trauma, no strenuous activity. He denies any recent illness or coughing. Patient had a chest x-ray that reported bibasilar airspace and interstitial opacities. Finding could relate to multifocal pneumonia or atelectasis. He then underwent gallbladder ultrasound with findings of cholelithiasis without acute cholecystitis. CT angiogram chest was negative for pulmonary embolism but did show pneumomediastinum with gas tracking into the neck and down into the upper abdomen. Correlate for perforated airway versus hollow viscus. Cardiomegaly with trace bilateral pleural effusions, correlate with serum BNP for congestive heart failure. Cardiothoracic surgery was consulted they had ordered a barium swallow that showed no evidence for esophageal leak. Gastroenterology was consulted for pneumo mediastinum evaluate esophagus or other cause. Patient denies any history of acid reflux, no history of peptic ulcer disease, he has no difficulty swallowing. Denies any pain with swallowing no decreased appetite recently. Oxygen saturation 93 with 2 L nasal cannula. He is currently denying any shortness of breath or chest pain. Denies any abdominal pain or epigastric pain. No nausea or vomiting. Labs WBC 14.7, hemoglobin 14.6 hematocrit 42 platelet count 202 total bilirubin 1.1 AST 27 ALT 21 alkaline phosphatase 39 02/17/2023: Patient temper HIDA scan, scheduled for cholecystectomy this afternoon with general surgery. No acute changes. HIDA scan reported no cystic duct obstruction to suggest acute cholecystitis. Gallbladder discussed his dyskinesia with EF of 19% Objective - Vital Signs Vital signs: Vital Signs Temp 97.9 F 02/17/23 04:00 Pulse 88 02/17/23 04:00 Resp 16 02/17/23 04:00 BP 123/73 02/17/23 04:00 Pulse Ox 98 02/17/23 04:00 FiO2 Intake & Output 02/16/23 02/17/23 02/17/23 18:59 06:59 18:59 Intake Total 480 Balance 480 Weight 95.254 kg Intake: Oral 480 Other: Voiding Method Toilet # Voids 2 - Exam General appearance: The patient is alert, oriented, appears in no acute distre ss. HET: Head is normocephalic and atraumatic. Conjunctiva pink. Sclera anicteric. Neck: Supple without lymphadenopathy. Abdomen: Soft, right upper quadrant tenderness, nondistended with bowel s ounds. No guarding or rigidity. Extremities: Normal skin color and turgor. No pedal edema Skin: No rashes, no jaundice Neurological: No focal deficits. Alert and oriented. - Labs CBC & Chem 7: 02/16/23 05:09 02/16/23 05:09 Labs: Microbiology - Last 24 Hours (Table) 02/15/23 13:35 Blood Culture - Preliminary Blood No Growth after 24 hours 02/15/23 13:20 Blood Culture - Preliminary Blood No Growth after 24 hours Assessment and Plan (1) Pneumomediastinum Narrative/Plan: 62-year-old male who presented with bilateral rib pain right greater than left with the findings on CT angiogram of pneumomediastinum as well as a chest x-ray showing bibasilar airspace and interstitial opacities. This patient who denies any recent trauma, no recent illness or coughing. No associated abdominal pain nausea or vomiting. No history of acid reflux or excessive GERD. No regular NSAID use. Unclear etiology of pneumomediastinum. He underwent barium swallow that shows no evidence of esophageal leak. Cardiothoracic surgery following, continue to follow their recommendations. Possible etiologies include severe abdominal pain and retching. EGD not recommended due to air inflation. Current Visit: Yes Status: Acute Code(s): J98.2 - INTERSTITIAL EMPHYSEMA SNOMED Code(s): 83146286 (2) Dyskinesia of gallbladder Current Visit: Yes Status: Acute Code(s): K82.8 - OTHER SPECIFIED DISEASES OF GALLBLADDER SNOMED Code(s): 695075613 Plan: 1. Continue symptomatic and supportive care 2. Continue with recommendations from cardiothoracic surgery 3. Continue with recommendations from general surgery 4. No plans on endoscopic evaluation 5. Continue Protonix 40 mg daily Thank you for this consultation, we will sign off at this time. Dr. Erica Charles I agree with the dictator's note, documented as a scribe by Mily Albert.
--- NOTE | 2023-02-17 14:14 | P.PN ---
Subjective Progress Note Date: 02/17/23 Hospital Course: 62-year-old male with PMH of hypertension, dyslipidemia, gout presents the ED f or abdominal pain that suddenly started yesterday around 6 PM. In the ED, his vital signs are stable, initially tachycardic in the high 90s. CBC showed leukocytosis of 17.8. Coagulation panel within normal limits. D-dimer elevated at 3.36. CMP showed sodium of 130, chloride of 97, glucose 139, total bilirubin of 1.7. Amylase and lipase within normal limits. Troponin less than 0.012. EKG showed sinus rhythm with ventricular rate of 94. Gallbladder ultrasound shows cholelithiasis without acute cholecystitis. CTA chest showed no PE, pneumomediastinum with gas tracking into the neck and down into the upper abdomen, cardiomegaly with trace bilateral pleural effusion. Patient is admitted for further workup of radiologic findings. GI, CT surgery, and Gen. surgery following. HIDA scan does not show cholecystitis. Subjective: 2 attempts made to see the patient today. He was down for his HIDA scan first and then down for cholecystecomy. Vitals Signs Reviewed. PE not performed. Will attempt to see the patient after surgery. Data Reviewed Today: Pertinent Labs: CBC and BMP still pending Blood cultures negative growth to date Assessment and Plan: Active: Pneumomediastinum Pleural effusions bilateral Cholelithiasis SIRS Hyponatremia -Thoracic surgery noted reviewed, no surgical interventions, Sine-Off -GI note following, continue supportive care, Protonix 40 mg daily, no plans for EGD -Had a personal discussion with Gen Surg with regards to cholelithiasis yesterda y. Plan was to get HIDA scan and then have a discussion with regards to cholecystectomy. -HIDA scan done this morning was negative for acute cholecystitis, it did show some dyskinesia with EF of 19% -patient was taken for lap cholecystectomy by General surgery before I had a chance to see the patient today -Bilateral pleural effusions possibly in the setting of pneumomediastinum -Pain control with IV Dilaudid as needed -Continue Unasyn 1.5 g every 6 hours IV -Hyponatremia likely hypovolemic, continue sodium chloride 1 30 mL an hour, repeat BMP pending Resolved: Elevated total bilirubin Chronic: Hypertension Dyslipidemia Gout DVT ppx: Subcu heparin Code status: Full code Anticipated discharge place: Pending Clinical course Anticipated discharge time: Pending clinical course Objective - Vital Signs Vital signs: Vital Signs Temp 97.8 F 02/17/23 13:53 Pulse 89 02/17/23 14:08 Resp 16 02/17/23 14:08 BP 165/78 02/17/23 14:08 Pulse Ox 96 02/17/23 14:08 FiO2 Intake & Output 02/16/23 02/17/23 02/17/23 18:59 06:59 18:59 Intake Total 480 400 Output Total 5 Balance 480 395 Weight 95.254 kg Intake: IV 400 Oral 480 Output: Estimated Blood Loss 5 Other: Voiding Method Toilet Toilet # Voids 2 - Labs CBC & Chem 7: 02/16/23 05:09 02/16/23 05:09 Labs: Microbiology - Last 24 Hours (Table) 02/15/23 13:35 Blood Culture - Preliminary Blood No Growth after 24 hours 02/15/23 13:20 Blood Culture - Preliminary Blood No Growth after 24 hours
--- NOTE | 2023-02-17 14:35 | P.OP ---
Date of Procedure: 02/17/23 Preoperative Diagnosis: Cholelithiasis Chronic cholecystitis Postoperative Diagnosis: Cholelithiasis Cholecystitis Procedure(s) Performed: Laparoscopic robotic-assisted cholecystectomy Anesthesia: LON Surgeon: Isauro Talley Estimated Blood Loss (ml): 10 Pathology: other (Gallbladder) Condition: stable Disposition: PACU Operative Findings: Cholelithiasis, cholecystitis with edema and gallbladder wall Description of Procedure: The patient's placed on the operative table in the supine position. He received general endotracheal anesthesia. His abdomen was prepped with sterile fashion. An infraumbilical skin incision was made. The Veress needles positioned into the peritoneal cavity. Position of the Veress needle was confirmed with a positive drop test. The abdomen was then insufflated. After adequate insufflation a 5 mm trochars placed. Cavity. Next the laparoscope placed. Cavity. A 8 mm robotic trocar was placed in the left mid abdomen. A a 8 mm robotic trochars placed in the right lateral position and then the right mid abdomen position. The patient was then placed in reverse Trendelenburg. Patient with was docked to the robot. There were adhesions to the dome of the gallbladder. These were lysed using the hook cautery. The gallbladder fundus was then grasped with a pro-grasp grasper. And then the gallbladder was retracted cephalad. There were adhesions along the body of the gallbladder. These were lysed with sharp dissection. The fundus of the gallbladder was then grasped in the lateral traction was placed in the fundus. And then using blunt and sharp dissection the cystic duct was identified. Using firing applied the cystic duct was identified. A critical view of safety was achieved. The cystic duct was seen entering the common bile duct the common hepatic duct was seen. The cystic duct had been completely dissected and then the cystic duct was clipped and divided. The cystic artery was then identified and then clipped and divided. The gallbladder was then removed from liver bed using left cautery. The gallbladder was placed in a 5 mm Endo Catch bag. The liver bed was hemostasis. There is no bleeding seen. The abdomen was irrigated. No bleeding was seen. The patient was then undocked from the robot. The gallbladder was extracted through the umbilical port site. The umbilical port site was then closed with 0 Ethibond suture. The trochars withdrawn. Skin was closed interrupted 3-0 Monocryl suture. Dermabond dressing applied. Patient top she will was sent to recovery room in stable condition.
[2023-02-17 16:33] LABS: Basophils % (A) 0 %; Eosinophils # (A) 0.1 k/uL (0-0.7); Eosinophils % (A) 1 %; HCT 37.4 % (39.0-53.0); Lymphocytes # (A) 0.3 k/uL (1.0-4.8); Lymphocytes % (A) 3 %; MCH 33.4 pg (25.0-35.0); MCHC 34.7 g/dL (31.0-37.0); MCV 96.4 fL (80.0-100.0); Monocytes # (A) 0.3 k/uL (0-1.0); Monocytes % (A) 3 %; Neutrophils # (A) 8.8 k/uL (1.3-7.7); Neutrophils % (A) 93 %; Platelet Count 189 k/uL (150-450); RBC 3.88 m/uL (4.30-5.90); RDW 12.2 % (11.5-15.5); WBC 9.5 k/uL (3.8-10.6)
[2023-02-17 16:51] LABS: African American GFR (CKD) >90 (>60 ml/min/1.73 sqM); Anion Gap 6 mmol/L; Blood Urea Nitrogen 11 mg/dL (9-20); Calcium 8.3 mg/dL (8.4-10.2); Carbon Dioxide 23 mmol/L (22-30); Chloride 101 mmol/L (98-107); Glucose 128 mg/dL (74-99); Non-African American GFR(CKD) >90 (>60 ml/min/1.73 sqM); Sodium 130 mmol/L (137-145)
[2023-02-18] MEDS: AMPICILLIN-SULBACTAM 1.5 GM in SODIUM CHLORIDE 0.9% 50 ML IVPB SCH ×2 (02:27→08:06)
[2023-02-18] MEDS: HYDROmorphone 1 MG/ML 1 ML SYRINGE IVP PRN ×2 (02:27→08:07)
[2023-02-18] MEDS: SODIUM CHLORIDE 0.9% 1,000 ML IV SCH (04:57)
[2023-02-18 07:42] VITALS: BP 135/85; PULSE 70; RESP 18; TEMP 97.6
[2023-02-18] MEDS ORDERED: HYDROcodone/APAP 5-325MG 1 EACH TAB PO PRN (07:47)
[2023-02-18] MEDS: PANTOPRAZOLE 40 MG/10 ML VIAL IV SCH (08:07)
[2023-02-18] MEDS ORDERED: ENOXAPARIN 40 MG/0.4 ML SYRINGE SQ SCH (09:00)
[2023-02-18 09:46] LABS: Basophils % (A) 0 %; Eosinophils % (A) 0 %; HCT 37.7 % (39.0-53.0); Lymphocytes # (A) 0.7 k/uL (1.0-4.8); Lymphocytes % (A) 7 %; MCH 33.4 pg (25.0-35.0); MCHC 34.4 g/dL (31.0-37.0); MCV 96.9 fL (80.0-100.0); Mean Platelet Volume 8.3; Monocytes # (A) 0.6 k/uL (0-1.0); Monocytes % (A) 6 %; Neutrophils # (A) 8.8 k/uL (1.3-7.7); Neutrophils % (A) 85 %; Platelet Count 256 k/uL (150-450); RBC 3.89 m/uL (4.30-5.90); WBC 10.4 k/uL (3.8-10.6)
[2023-02-18 10:09] LABS: ALT 25 U/L (4-49); AST 36 U/L (17-59); African American GFR (CKD) >90 (>60 ml/min/1.73 sqM); Albumin 3.3 g/dL (3.5-5.0); Alkaline Phosphatase 44 U/L (38-126); Anion Gap 10 mmol/L; Blood Urea Nitrogen 11 mg/dL (9-20); Calcium 8.9 mg/dL (8.4-10.2); Carbon Dioxide 22 mmol/L (22-30); Chloride 101 mmol/L (98-107); Glucose 127 mg/dL (74-99); Non-African American GFR(CKD) >90 (>60 ml/min/1.73 sqM); Potassium 3.8 mmol/L (3.5-5.1); Sodium 133 mmol/L (137-145); Total Bilirubin 0.5 mg/dL (0.2-1.3); Total Protein 6.1 g/dL (6.3-8.2)
--- NOTE | 2023-02-18 11:08 | P.PN ---
Subjective Progress Note Date: 02/18/23 CHIEF COMPLAINT: Cholelithiasis HISTORY OF PRESENT ILLNESS: Patient lying in bed comfortably. He does complain of incisional pain. He reports his pain is controlled. He is having flatus. Denies any nausea or vomiting. He does report some pain upper abdomen both sides. He reports being able to breathe easier. He has been up and ambulating. He is urinating. Afebrile. WBC is 10.4 HgB 13 platelets 256 sodium is 133 potassium 3.8 creatinine 0.77 Patient seen and examined with Dr. Talley PHYSICAL EXAM: VITAL SIGNS: Reviewed. GENERAL: Well-developed in no acute distress. HEENT: No sclera icterus. Extraocular movements grossly intact. Moist buccal mucosa. Head is atraumatic, normocephalic. ABDOMEN: Soft. Nondistended. NEUROLOGIC: Alert and oriented. Cranial nerves II through XII grossly intact. ASSESSMENT: 1. Cholelithiasis and chronic cholecystitis status post laparoscopic robotic assisted cholecystectomy PLAN: -Patient is stable from surgical standpoint for discharge -Recommend outpatient follow-up Physician Blueprint [employer] note has been reviewed by physician. Signing provider agrees with the documented findings, assessment, and plan of care. Objective - Vital Signs Vital signs: Vital Signs Temp 97.6 F 02/18/23 07:10 Pulse 70 02/18/23 07:10 Resp 18 02/18/23 07:10 BP 135/85 02/18/23 07:10 Pulse Ox 94 L 02/18/23 09:34 FiO2 Intake & Output 02/17/23 02/18/23 02/18/23 18:59 06:59 18:59 Intake Total 618 180 Output Total 5 Balance 613 180 Weight 93.1 kg Intake: IV 500 Oral 118 180 Output: Estimated Blood Loss 5 Other: Voiding Method Toilet Toilet Toilet # Voids 0 - Labs CBC & Chem 7: 02/18/23 09:13 02/18/23 09:13 Labs: Abnormal Lab Results - Last 24 Hours (Table) 02/17/23 02/17/23 02/18/23 Range/Units 16:06 16:06 09:13 RBC 3.88 L 3.89 L (4.30-5.90) m/uL Hct 37.4 L 37.7 L (39.0-53.0) % Neutrophils # 8.8 H 8.8 H (1.3-7.7) k/uL Lymphocytes # 0.3 L 0.7 L (1.0-4.8) k/uL Sodium 130 L (137-145) mmol/L Glucose 128 H (74-99) mg/dL Calcium 8.3 L (8.4-10.2) mg/dL Total Protein (6.3-8.2) g/dL Albumin (3.5-5.0) g/dL 02/18/23 Range/Units 09:13 RBC (4.30-5.90) m/uL Hct (39.0-53.0) % Neutrophils # (1.3-7.7) k/uL Lymphocytes # (1.0-4.8) k/uL Sodium 133 L (137-145) mmol/L Glucose 127 H (74-99) mg/dL Calcium (8.4-10.2) mg/dL Total Protein 6.1 L (6.3-8.2) g/dL Albumin 3.3 L (3.5-5.0) g/dL Microbiology - Last 24 Hours (Table) 02/15/23 13:35 Blood Culture - Preliminary Blood No Growth after 48 hours 02/15/23 13:20 Blood Culture - Preliminary Blood No Growth after 48 hours
--- NOTE | 2023-02-18 13:07 | P.DS ---
Providers Date of admission: 02/15/23 12:51 Expected date of discharge: 02/18/23 Attending physician: Kalani Foley MD Consults: 02/15/23 12:30 Consult Physician Stat Consulting Provider: Anish Mcdonough Consult Reason/Comments: Pneumomediastinum Do you want consulting provider notified?: Yes 02/15/23 12:57 Consult Physician Urgent Consulting Provider: Isauro Talley Consult Reason/Comments: Cholelithiasis Do you want consulting provider notified?: Yes Primary care physician: Casey Bellamy Hospital Course: Discharge Diagnosis: Pneumomediastinum Pleural effusions bilateral Cholelithiasis Elevated total bilirubin Possible acute cholecystitis, status post cholecystectomy SIRS Hyponatremia Hypertension Dyslipidemia Gout Hospital Course: 62-year-old male with PMH of hypertension, dyslipidemia, gout presents the ED for abdominal pain that suddenly started yesterday around 6 PM. In the ED, his vital signs are stable, initially tachycardic in the high 90s. CBC showed leukocytosis of 17.8. Coagulation panel within normal limits. D-dimer elevated at 3.36. CMP showed sodium of 130, chloride of 97, glucose 139, total bilirubin of 1.7. Amylase and lipase within normal limits. Troponin less than 0.012. EKG showed sinus rhythm with ventricular rate of 94. Gallbladder ultrasound shows cholelithiasis without acute cholecystitis. CTA chest showed no PE, pneumomediastinum with gas tracking into the neck and down into the upper abdomen, cardiomegaly with trace bilateral pleural effusion. Patient is admitted for further workup of radiologic findings. GI, CT surgery, and Gen. surgery following. Respiratory function had improved. No further interventions required per GI and CT surgery. Abdominal pain was persistent. HIDA scan did not suggest cholecystitis, but did show reduced EF, consistent with dyskinesia. Due to persistent abdominal pain, patient was taken for laparoscopic cholecystectomy, was noted to have gallbladder wall edema consistent with possible cholecystitis. Patient will be discharged on oral Augmentin. Patient seen and examined at bedside. Vital signs reviewed and stable. General: nontoxic, no distress, appears at stated age Derm: warm, dry, abdominal incision sites look clean, dry, intact Head: atraumatic, normocephalic, symmetric Eyes: EOMI, no lid lag, anicteric sclera Mouth: no lip lesion, mucus membranes moist Cardiovascular: S1S2 reg, no murmur Lungs: CTA bilateral, no rhonchi, no rales , no accessory muscle use Abdominal: soft, nontender to palpation, no guarding, no appreciable organomegaly Ext: no gross muscle atrophy, no edema, no contractures Neuro: CN II-XI grossly intact, no focal neuro deficits Psych: Alert, oriented, appropriate affect A total of 36 minutes of time were spent preparing this complex discharge summary. Patient was discharged on 02/18/23 at 10:22. Patient Condition at Discharge: Stable Plan - Discharge Summary Discharge Rx Participant: No New Discharge Prescriptions: New HYDROcodone/APAP 5-325MG [Happy 5-325] 1 each PO Q6HR PRN #10 tab PRN Reason: Severe Pain (Scale 7 To 10) Amoxic-Pot Clav 875-125Mg [Augmentin 875-125] 1 tab PO Q12HR 3 Days #6 tab Continue Atenolol/Chlorthalidone [Atenolol/Chlorthalidone 50-25] 1 tab PO W/LUNCH allopurinoL [Zyloprim] 300 mg PO W/LUNCH Fenofibrate Nanocrystallized [Fenofibrate] 145 mg PO W/LUNCH lisinopriL [Prinivil] 10 mg PO W/LUNCH Discharge Medication List Atenolol/Chlorthalidone [Atenolol/Chlorthalidone 50-25] 1 tab PO W/LUNCH 07/13/18 [History] allopurinoL [Zyloprim] 300 mg PO W/LUNCH 07/13/18 [History] Fenofibrate Nanocrystallized [Fenofibrate] 145 mg PO W/LUNCH 02/15/23 [History] lisinopriL [Prinivil] 10 mg PO W/LUNCH 02/15/23 [History] Amoxic-Pot Clav 875-125Mg [Augmentin 875-125] 1 tab PO Q12HR 3 Days #6 tab 02/18/23 [Rx] HYDROcodone/APAP 5-325MG [Happy 5-325] 1 each PO Q6HR PRN #10 tab 02/18/23 [Rx] Follow up Appointment(s)/Referral(s): Casey Bellamy MD [Primary Care Provider] - 02/23/23 10:30 am Isauro Talley MD [STAFF PHYSICIAN] - 02/25/23 3:30 am Patient Instructions/Handouts: *Surgery [facility] - Laparoscopic Cholecystectomy Discharge Instructions, Laparoscopic Cholecystectomy (DC) Activity/Diet/Wound Care/Special Instructions: Follow-up with your surgeon as well as your PCP. No driving while taking Happy No lifting over 10 pounds You may shower. No soaking or tub baths for 2 weeks Very light activity until you are reevaluated at your follow up appointment with your surgeon Discharge Disposition: HOME SELF-CARE
== END 2023-02-18 12:04 | disposition home or self-care (01) | DRG 988 ==
LOC: EC 08:51 → 3SCARD 12:51
PROVIDERS: ADMIT Family Medicine; ATTEND Family Medicine
PROC: 8E0W4CZ Robotic Assisted Procedure of Trunk Region, Percutaneous Endoscopic Approach (ICD-10-PCS; principal; 2023-02-17 08:30)
PROC: 0FT44ZZ Resection of Gallbladder, Percutaneous Endoscopic Approach (ICD-10-PCS; principal; 2023-02-17 08:30)
DX: J98.2 Interstitial emphysema (principal); E87.1 Hypo-osmolality and hyponatremia; J90 Pleural effusion, not elsewhere classified; R65.10 Systemic inflammatory response syndrome (SIRS) of non-infectious origin without acute organ dysfunction; K80.10 Calculus of gallbladder with chronic cholecystitis without obstruction; I11.9 Hypertensive heart disease without heart failure; E78.5 Hyperlipidemia, unspecified; M10.9 Gout, unspecified; K82.8 Other specified diseases of gallbladder; E86.1 Hypovolemia; Z79.899 Other long term (current) drug therapy; Z88.6 Allergy status to analgesic agent
CPT/HCPCS: 36415; 71045; 71046; 71275; 74220; 76705; 78227; 80048; 80053; 82150; 83690; 83735; 84484; 85025; 85379; 85610; 85730; 87040; 87635; 88304; 93005; 94760; 96361; 96365; 96366; 96372; 96375; 96376; 99285

== ENCOUNTER 2023-02-24 15:10 | Emergency (ER) | payer BC ==
[2023-02-24 15:31] VITALS: TEMP 98.9
[2023-02-24] MEDS ORDERED: SODIUM CHLORIDE 0.9% 1,000 ML IV STA ×3 (15:58→18:07)
[2023-02-24] MEDS ORDERED: ONDANSETRON 4 MG/2 ML VIAL IVP STA (16:09)
[2023-02-24] MEDS ORDERED: MORPHINE SULFATE 4 MG/ML SYRINGE IVP STA (16:09)
[2023-02-24] MEDS ORDERED: PANTOPRAZOLE 40 MG/10 ML VIAL IVP STA (16:12)
[2023-02-24 17:31] LABS: Basophils % (A) 0 %; Eosinophils # (A) 0.2 k/uL (0-0.7); Eosinophils % (A) 1 %; HCT 40.5 % (39.0-53.0); Lymphocytes # (A) 1.2 k/uL (1.0-4.8); Lymphocytes % (A) 6 %; MCH 32.2 pg (25.0-35.0); MCHC 34.5 g/dL (31.0-37.0); MCV 93.2 fL (80.0-100.0); Mean Platelet Volume 8.1; Monocytes # (A) 1.4 k/uL (0-1.0); Monocytes % (A) 7 %; Neutrophils # (A) 16.7 k/uL (1.3-7.7); Neutrophils % (A) 83 %; Platelet Count 409 k/uL (150-450); RBC 4.35 m/uL (4.30-5.90); RDW 12.5 % (11.5-15.5)
--- NOTE | 2023-02-24 17:33 | XR ---
EXAMINATION TYPE: XR chest 1V portable DATE OF EXAM: 02/24/2023 5:05 PM COMPARISON: Chest radiographs from 423 TECHNIQUE: XR chest 1V portable Frontal view of the chest. CLINICAL INDICATION:Male, 62 years old with history of abdominal pain; FINDINGS: Lungs/Pleura: Atelectasis changes in the right lower lung. There is no evidence of pleural effusion, focal consolidation, or pneumothorax. Pulmonary vascularity: Unremarkable. Heart/mediastinum: Cardiomediastinal silhouette is unremarkable. Musculoskeletal: No acute osseous pathology. IMPRESSION: 1. No acute cardiopulmonary disease/process. 2. Right basilar atelectasis.
--- NOTE | 2023-02-24 17:34 | ED ---
General Adult HPI - General Chief complaint: Abdominal Pain Stated complaint: post op fever and pain at incision sites Time Seen by Provider: 02/24/23 15:55 Source: patient, RN notes reviewed, old records reviewed Mode of arrival: ambulatory Limitations: no limitations - History of Present Illness Initial comments: Patient is a 62-year-old male who presents [facility] complaining of worsening abdominal pain. Patient received a laparoscopic cholecystectomy last week by Dr. Talley. Had a low-grade fever at home of 100. Took Tylenol prior to presentation. Patient also is found on presentation last week that he had spontaneous pneumomediastinum. It was resolving. Workup was negative at that time and he was eventually medically cleared for discharge home after evaluation by CT surgery, medicine, GI, Gen. surgery. Patient is discharged home, however she has been continuing to have pain for the last few days, worse over the last 1-2 days. No nausea or vomiting. No diarrhea. States the pain is in his abdomen in the right upper and left upper sides. Denies any dysuria hematuria. No chest pain. No shortness of breath. No other acute complaints at this time. Presents for further evaluation at this time over concern for postop pain. - Related Data Home Medications Medication Instructions Recorded Confirmed Atenolol/Chlorthalidone 1 tab PO W/LUNCH 07/13/18 02/15/23 [Atenolol/Chlorthalidone 50-25] allopurinoL [Zyloprim] 300 mg PO W/LUNCH 07/13/18 02/15/23 Fenofibrate Nanocrystallized 145 mg PO W/LUNCH 02/15/23 02/15/23 [Fenofibrate] lisinopriL [Prinivil] 10 mg PO W/LUNCH 02/15/23 02/15/23 Previous Rx's Medication Instructions Recorded Amoxic-Pot Clav 875-125Mg 1 tab PO Q12HR 3 Days #6 tab 02/18/23 [Augmentin 875-125] HYDROcodone/APAP 5-325MG [[place] 1 each PO Q6HR PRN #10 tab 02/18/23 5-325] Allergies Allergy/AdvReac Type Severity Reaction Status Date / Time ibuprofen [From Advil] Allergy Rash/Hives Verified 02/24/23 15:31 Review of Systems ROS Statement: Those systems with pertinent positive or pertinent negative responses have been documented in the HPI. Review of Systems: CONST: Denies fever EYES: Denies blurry vision ENT: Denies nasal congestion C/V: Denies Chest pain RESP: Denies shortness of breath GI: Endorses abdominal pain : Denies dysuria SKIN: Denies rash. MSK: Denies joint pain. NEURO: Denies headache ROS Other: All systems not noted in ROS Statement are negative. Past Medical History Past Medical History: GERD/Reflux, Hyperlipidemia, Hypertension Additional Past Medical History / Comment(s): gout History of Any Multi-Drug Resistant Organisms: None Reported Past Surgical History: Cholecystectomy, Orthopedic Surgery Additional Past Surgical History / Comment(s): surgery on foot bones- shaved bone down Past Psychological History: No Psychological Hx Reported Smoking Status: Never smoker Past Alcohol Use History: Occasional Past Drug Use History: None Reported General Exam - General Exam Comments Initial Comments: General: Appears in moderate distress secondary to pain. HEAD: Normal with no signs of head trauma. EYES: PERRLA, EOMI, conjunctiva normal, no discharge. ENT: Hearing grossly intact, normal oropharynx. RESPIRATORY: Clear breath sounds bilaterally. No wheezes, rales, or rhonchi. C/V: Regular rate and rhythm. S1 and S2 auscultated, no edema, peripheral pulses 2+ and intact throughout ABD: Abdomen soft, nondistended. Tender to palpation in the epigastric, right upper quadrant, left upper quadrant region. No guarding. No peritoneal signs. No rebound tenderness. EXT: Normal range of motion, no obvious deformity SKIN: Surgical incisions appear unremarkable. Scabbing over, no discharge. No tenderness. No surrounding erythema. No surrounding fluctuance. NEURO: Alert and oriented 4. Limitations: no limitations Course Vital Signs 02/24/23 02/24/23 02/24/23 15:28 16:30 17:00 Temperature 98.9 F Pulse Rate 63 64 Respiratory 16 18 Rate Blood Pressure 93/57 100/62 100/62 O2 Sat by Pulse 96 97 Oximetry 02/24/23 02/24/23 02/24/23 17:30 18:00 18:30 Temperature Pulse Rate 67 68 65 Respiratory 26 H 19 17 Rate Blood Pressure 100/62 112/68 106/66 O2 Sat by Pulse 91 L 92 L Oximetry 02/24/23 02/24/23 02/24/23 18:35 18:40 18:45 Temperature Pulse Rate 65 67 67 Respiratory 19 18 14 Rate Blood Pressure 94/53 92/52 94/60 O2 Sat by Pulse 93 L 93 L 94 L Oximetry 02/24/23 02/24/23 02/24/23 18:50 18:55 19:00 Temperature Pulse Rate 67 67 67 Respiratory 15 16 16 Rate Blood Pressure 103/59 101/63 98/64 O2 Sat by Pulse 93 L 94 L 93 L Oximetry 02/24/23 02/24/23 19:05 19:10 Temperature Pulse Rate 66 67 Respiratory 20 16 Rate Blood Pressure 106/69 106/69 O2 Sat by Pulse 98 98 Oximetry Medical Decision Making - Medical Decision Making Was pt. sent in by a medical professional or institution (, PA, COMMUNICATIONS STRATEGIST, urgent care, hospital, or longterm...) When possible be specific @ -No Did you speak to anyone other than the patient for history (EMS, parent, family, police, friend...)? What history was obtained from this source @ -No Did you review nursing and triage notes (agree or disagree)? Why? @ -I reviewed and agree with nursing and triage notes Were old charts reviewed (outside hosp., previous admission, EMS record, old EKG, old radiological studies, urgent care reports/EKG's, longterm records)? Report findings @ -Old charts reviewed including prior visit from last week January 2023. Differential Diagnosis (chest pain, altered mental status, abdominal pain women, abdominal pain men, vaginal bleeding, weakness, fever, dyspnea, syncope, headache, dizziness, GI bleed, back pain, seizure, CVA, palpatations, mental health, musculoskeletal)? @ -Differential Abdominal Pain Men: Appendicitis, cholecystitis, diverticulosis, ischemic bowel, pancreatitis, hepatitis, UTI, gastroenteritis, AAA, incarcerated hernia, bowel obstruction, constipation, inflammatory bowel, hepatitis, peptic ulcer disease, splenic infarction, perforated viscus, testicular torsion, this is not meant to be an all-inclusive list EKG interpreted by me (3pts min.). @ -As above X-rays interpreted by me (1pt min.). @ -Chest x-ray shows no obvious acute cardiopulmonary process. CT interpreted by me (1pt min.). @ -Radiology called me directly with results. CT remarkable for concern, viscus perforation, suspect distal esophagus or stomach. There are debris outside of the esophagus and distal mediastinum as well as along the upper abdomen along the stomach. Trace bilateral pleural effusions, right greater than left. U/S interpreted by me (1pt. min.). @ -None done What testing was considered but not performed or refused? (CT, X-rays, U/S, labs)? Why? @ -Barium swallow study not done, as I was informed by CT that this will likely not happen stat. What meds were considered but not given or refused? Why? @ -None Did you discuss the management of the patient with other professionals (professionals i.e. DrSue, PA, COMMUNICATIONS STRATEGIST, lab, RT, psych nurse, oncology social worker, creative perfumer, teacher, physics technical officer, family independence case manager)? Give summary @ -Discussed the case with Dr. Lemos of radiology who discussed with me the results of the CT imaging. I spoke with on-call cardiothoracic surgeon Dr. Saravia, who recommended stat barium swallow study,this cannot be done to transfer the patient. Spoke with Accepting physician Dr. Rivera who accepted the transfer to [facility]. Was smoking cessation discussed for >3mins.? @ -No Was critical care preformed (if so, how long)? @ -Yes, 35 min Were there social determinants of health that impacted care today? How? (Homelessness, low income, unemployed, alcoholism, drug addiction, transportation, low edu. Level, literacy, decrease access to med. care, residential, rehab)? @ -No Was there de-escalation of care discussed even if they declined (Discuss DNR or withdrawal of care, Hospice)? DNR status @ -No What co-morbidities impacted this encounter? (DM, HTN, Smoking, COPD, CAD, Cancer, CVA, ARF, Chemo, Hep., AIDS, mental health diagnosis, sleep apnea, morbid obesity)? @ -Spontaneous pneumomediastinum last week diagnosed, recent laparoscopic cholecystectomy last week. Was patient admitted / discharged? Hospital course, mention meds given and route, prescriptions, significant lab abnormalities, going to OR and other pertinent info. @ -Based on the patient's presentation and physical exam, I'm concerned for postop pain and the patient. With his history of recent pneumomediastinum we will obtain CT of the chest abdomen pelvis. Abdominal laboratory studies will also be obtained. Patient received a 1 L fluid bolus, as well as IV Zofran, Protonix, morphine. Patient was in agreement this plan. 1 view chest x-ray will be obtained in the meantime to evaluate for worsening mediastinal free air. EKG will also be obtained. Vital signs are within acceptable limits. Patient's labs returned remarkable for leukocytosis of 20. Remainder of the labs are within acceptable limits. Mild hyponatremia to 1:30 and hypochloremia to 94. Chest x-ray shows no obvious findings. Radiology called me directly and discussed concern for perforation of the distal esophagus, with suspected ingested debris outside of the esophagus distally as well as extending along the stomach and upper abdomen along the lesser curvature. No obvious source of perforation seen on CT. This was conveyed to me at [address] Lemos. We immediately reached out to cardiothoracic surgery at approximately 1805, [facility] via perfect serve. Patient started on broad-spectrum empiric vancomycin and Zosyn. Nothing by mouth. On IV fluids. No response by 1840 after multiple attempts. Now reaching out to Dr. Saravia, who was determined to be insulation cupola charger over this period of time.. Dr. Saravia returned call at approximately 1850. We did discuss the case. He stated that if a stat esophageal barium swallow study can be done, then they would be willing to evaluate it and determine if surgery is possible by their group. If this cannot be done then he recommends stat transfer. I'm in agreement with this plan. I did discuss with radiology how quickly a barium swallow to be completed and they stated, at this time of night it may be hours. Cannot guarantee this can be done quickly. Therefore, patient will be transferred at this time. I did update the patient as well as his . He was in agreement this plan. Remains hemodynamically stable at this time. Second IV was placed and patient was started on antibiotics. We discussed the plan and they were in agreement this plan. Transfer initiated at 1900.Patient accepted the [facility] for urgent evaluation for esophageal rupture. Accepting physician is Dr. Rivera. Undiagnosed new problem with uncertain prognosis? @ -No Drug Therapy requiring intensive monitoring for toxicity (Heparin, Nitro, Insulin, Cardizem)? @ -No Were any procedures done? @ -No Diagnosis/symptom? @ -Suspected esophageal rupture of unknown etiology Acute, or Chronic, or Acute on Chronic? @ -Acute Uncomplicated (without systemic symptoms) or Complicated (systemic symptoms)? @ -Complicated Side effects of treatment? @ -none Exacerbation, Progression, or Severe Exacerbation] @ no Poses a threat to life or bodily function? @ -Yes - Lab Data Result diagrams: 02/24/23 16:23 02/24/23 16:23 Lab Results 02/24/23 02/24/23 02/24/23 Range/Units 16:23 16:23 16:23 WBC 20.0 H (3.8-10.6) k/uL RBC 4.35 (4.30-5.90) m/uL Hgb 14.0 (13.0-17.5) gm/dL Hct 40.5 (39.0-53.0) % MCV 93.2 (80.0-100.0) fL MCH 32.2 (25.0-35.0) pg MCHC 34.5 (31.0-37.0) g/dL RDW 12.5 (11.5-15.5) % Plt Count 409 (150-450) k/uL MPV 8.1 Neutrophils % 83 % Lymphocytes % 6 % Monocytes % 7 % Eosinophils % 1 % Basophils % 0 % Neutrophils # 16.7 H (1.3-7.7) k/uL Lymphocytes # 1.2 (1.0-4.8) k/uL Monocytes # 1.4 H (0-1.0) k/uL Eosinophils # 0.2 (0-0.7) k/uL Basophils # 0.0 (0-0.2) k/uL APTT 23.5 (22.0-30.0) sec Sodium (137-145) mmol/L Potassium (3.5-5.1) mmol/L Chloride (98-107) mmol/L Carbon Dioxide (22-30) mmol/L Anion Gap mmol/L BUN (9-20) mg/dL Creatinine (0.66-1.25) mg/dL Est GFR (CKD-EPI)AfAm (>60 ml/min/1.73 sqM) Est GFR (CKD-EPI)NonAf (>60 ml/min/1.73 sqM) Glucose (74-99) mg/dL Plasma Lactic Acid Neptali (0.7-2.0) mmol/L Calcium (8.4-10.2) mg/dL Total Bilirubin (0.2-1.3) mg/dL AST (17-59) U/L ALT (4-49) U/L Alkaline Phosphatase (38-126) U/L Total Protein (6.3-8.2) g/dL Albumin (3.5-5.0) g/dL Amylase (30-110) U/L Lipase (23-300) U/L Urine Color Yellow Urine Appearance Cloudy (Clear) Urine pH 8.0 (5.0-8.0) Ur Specific [place] 1.017 (1.001-1.035) Urine Protein Trace H (Negative) Urine Glucose (UA) Negative (Negative) Urine Ketones Negative (Negative) Urine Blood Negative (Negative) Urine Nitrite Negative (Negative) Urine Bilirubin Negative (Negative) Urine Urobilinogen <2.0 (<2.0) mg/dL Ur Leukocyte Esterase Negative (Negative) Urine RBC 1 (0-5) /hpf Urine WBC 1 (0-5) /hpf Amorphous Sediment Moderate H (None) /hpf Urine Mucus Rare H (None) /hpf Blood Type Blood Type Confirm Blood Type Recheck Bld Type Recheck Status Antibody Screen Spec Expiration Date 02/24/23 02/24/23 02/24/23 Range/Units 16:23 16:23 16:40 WBC (3.8-10.6) k/uL RBC (4.30-5.90) m/uL Hgb (13.0-17.5) gm/dL Hct (39.0-53.0) % MCV (80.0-100.0) fL MCH (25.0-35.0) pg MCHC (31.0-37.0) g/dL RDW (11.5-15.5) % Plt Count (150-450) k/uL MPV Neutrophils % % Lymphocytes % % Monocytes % % Eosinophils % % Basophils % % Neutrophils # (1.3-7.7) k/uL Lymphocytes # (1.0-4.8) k/uL Monocytes # (0-1.0) k/uL Eosinophils # (0-0.7) k/uL Basophils # (0-0.2) k/uL APTT (22.0-30.0) sec Sodium 130 L (137-145) mmol/L Potassium 4.2 (3.5-5.1) mmol/L Chloride 94 L (98-107) mmol/L Carbon Dioxide 22 (22-30) mmol/L Anion Gap 14 mmol/L BUN 17 (9-20) mg/dL Creatinine 1.04 (0.66-1.25) mg/dL Est GFR (CKD-EPI)AfAm 88 (>60 ml/min/1.73 sqM) Est GFR (CKD-EPI)NonAf 76 (>60 ml/min/1.73 sqM) Glucose 108 H (74-99) mg/dL Plasma Lactic Acid Neptali 1.2 (0.7-2.0) mmol/L Calcium 9.9 (8.4-10.2) mg/dL Total Bilirubin 0.9 (0.2-1.3) mg/dL AST 23 (17-59) U/L ALT 20 (4-49) U/L Alkaline Phosphatase 60 (38-126) U/L Total Protein 7.1 (6.3-8.2) g/dL Albumin 3.6 (3.5-5.0) g/dL Amylase 75 (30-110) U/L Lipase 178 (23-300) U/L Urine Color Urine Appearance (Clear) Urine pH (5.0-8.0) Ur Specific [place] (1.001-1.035) Urine Protein (Negative) Urine Glucose (UA) (Negative) Urine Ketones (Negative) Urine Blood (Negative) Urine Nitrite (Negative) Urine Bilirubin (Negative) Urine Urobilinogen (<2.0) mg/dL Ur Leukocyte Esterase (Negative) Urine RBC (0-5) /hpf Urine WBC (0-5) /hpf Amorphous Sediment (None) /hpf Urine Mucus (None) /hpf Blood Type A Positive Blood Type Confirm Blood Type Recheck No Previous Record Bld Type Recheck Status CABO Indicated Antibody Screen NEGATIVE Spec Expiration Date 02/27/2023 - 233902/24/23 Range/Units 17:11 WBC (3.8-10.6) k/uL RBC (4.30-5.90) m/uL Hgb (13.0-17.5) gm/dL Hct (39.0-53.0) % MCV (80.0-100.0) fL MCH (25.0-35.0) pg MCHC (31.0-37.0) g/dL RDW (11.5-15.5) % Plt Count (150-450) k/uL MPV Neutrophils % % Lymphocytes % % Monocytes % % Eosinophils % % Basophils % % Neutrophils # (1.3-7.7) k/uL Lymphocytes # (1.0-4.8) k/uL Monocytes # (0-1.0) k/uL Eosinophils # (0-0.7) k/uL Basophils # (0-0.2) k/uL APTT (22.0-30.0) sec Sodium (137-145) mmol/L Potassium (3.5-5.1) mmol/L Chloride (98-107) mmol/L Carbon Dioxide (22-30) mmol/L Anion Gap mmol/L BUN (9-20) mg/dL Creatinine (0.66-1.25) mg/dL Est GFR (CKD-EPI)AfAm (>60 ml/min/1.73 sqM) Est GFR (CKD-EPI)NonAf (>60 ml/min/1.73 sqM) Glucose (74-99) mg/dL Plasma Lactic Acid Neptali (0.7-2.0) mmol/L Calcium (8.4-10.2) mg/dL Total Bilirubin (0.2-1.3) mg/dL AST (17-59) U/L ALT (4-49) U/L Alkaline Phosphatase (38-126) U/L Total Protein (6.3-8.2) g/dL Albumin (3.5-5.0) g/dL Amylase (30-110) U/L Lipase (23-300) U/L Urine Color Urine Appearance (Clear) Urine pH (5.0-8.0) Ur Specific [place] (1.001-1.035) Urine Protein (Negative) Urine Glucose (UA) (Negative) Urine Ketones (Negative) Urine Blood (Negative) Urine Nitrite (Negative) Urine Bilirubin (Negative) Urine Urobilinogen (<2.0) mg/dL Ur Leukocyte Esterase (Negative) Urine RBC (0-5) /hpf Urine WBC (0-5) /hpf Amorphous Sediment (None) /hpf Urine Mucus (None) /hpf Blood Type Blood Type Confirm A Positive Blood Type Recheck Bld Type Recheck Status Antibody Screen Spec Expiration Date - EKG Data -: EKG Interpreted by Me EKG Comments: 12-lead Electrocardiogram Interpretation Note EKG was reviewed and interpreted by myself. 12-lead ECG performed at 1621 is interpreted by me as revealing normal sinus rhythm with first-degree AV block at a rate of at 64 beats per minute. [place] is normal. [place] interval is 240 ms which is chronically high, QRS duration is 104 ms, QTc is 397 ms.. There were no ST or T wave abnormalities to suggest myocardial ischemia or injury. R wave progression across the precordium was satisfactory. By my interpretation this EKG is non-diagnostic for acute ischemia. When compared with EKG from 02/15/2023,no significant change. Critical Care Time Critical Care Time: Yes Total Critical Care Time: 35 Disposition Clinical Impression: Esophageal rupture Disposition: OTHER INSTITUTION NOT DEFINED Condition: Serious Referrals: Casey Bellamy MD [Primary Care Provider] - 1-2 days Time of Disposition: 19:00 - Out of Hospital Transfer - Req. Specs Out of Hospital Transfer - Requested Specifics: Other Emergency Center (Transfe rred for escalation of care for esophageal rupture.)
[2023-02-24 17:47] LABS: Amorphous Sediment,Urine Moderate /hpf; Appearance,Urine Cloudy (Clear); Bilirubin,Urine Negative (Negative); Blood,Urine Negative (Negative); Color,Urine Yellow; Glucose,Urine (UA) Negative (Negative); Ketones,Urine Negative (Negative); Leukocyte Esterase,Urine Negative (Negative); Mucus,Urine Rare /hpf; Nitrite,Urine Negative (Negative); Protein,Urine Trace (Negative); RBC,Urine 1 /hpf (0-5); Specific Gravity,Urine 1.017 (1.001-1.035); Urobilinogen,Urine <2.0 mg/dL (<2.0); WBC,Urine 1 /hpf (0-5)
[2023-02-24 18:00] LABS: Albumin 3.6 g/dL (3.5-5.0); Calcium 9.9 mg/dL (8.4-10.2); Potassium 4.2 mmol/L (3.5-5.1); Total Bilirubin 0.9 mg/dL (0.2-1.3); Total Protein 7.1 g/dL (6.3-8.2)
[2023-02-24] MEDS ORDERED: PIPERACILLIN-TAZOBACTAM 3.375 GM in SODIUM CHLORIDE 0.9% 100 ML IVPB SCH (18:00)
[2023-02-24] MEDS ORDERED: VANCOMYCIN IV PER PHARMACY 1 EACH MISC MISCELLANE PRN (18:07)
[2023-02-24] MEDS ORDERED: VANCOMYCIN 1,500 MG in SODIUM CHLORIDE 0.9% 500 ML 500 ML IVPB STA (18:11)
--- NOTE | 2023-02-24 18:12 | CT ---
EXAMINATION TYPE: CT ChestAbdPelvis w con CT DLP: 1354.1 mGycm, Automated exposure control for dose reduction was used. DATE OF EXAM: 02/24/2023 5:32 PM COMPARISON: 02/15/2023 CT and barium swallow. CLINICAL INDICATION:Male, 62 years old with history of post op [place]. Pneumomediastinum found prior; PHH, fever, pain at incision site of recent corn[place] Technique: Multiple axial images of the chest, abdomen, and pelvis were obtained. Two-dimensional cor onal and sagittal reconstructions were obtained. Contrast used:100 mL of Isovue 300 with IV Contrast, Oral contrast used: without Oral Contrast Findings: CHEST: LUNGS/ PLEURA: New trace bilateral pleural effusions. No evidence of focal consolidation. AIRWAY: Patent and unremarkable. HEART: Size within normal limits. MEDIASTINUM: No gross evidence of adenopathy. There is now an organizing collection presumably of ingested contents within the distal mediastinum r ight lateral aspect of the esophagus and tracking inferiorly to the upper abdomen along the lesser cu rvature of the stomach. This area measures roughly 5.1 x 5.1 cm and extends to 11.7 cm in caudocrania l dimension. No obvious defect is appreciated within the esophagus or stomach. There is decreasing ga s seen throughout the mediastinum on today's exam when compared to 02/15/2023. Prominent lymph nodes a re now seen in the gastric hepatic ligament. VASCULATURE: No aortic aneurysm. MUSCULOSKELETAL: No acute osseous abnormalities. SOFT TISSUES/LYMPH NODES: Unremarkable. LOWER NECK: No significant findings. ABDOMEN: ABDOMEN LIVER: Unremarkable GALLBLADDER AND BILE DUCTS: The gallbladder surgically absent. No evidence of fluid collection within the gallbladder fossa. PANCREAS: Unremarkable. SPLEEN: Unremarkable. ADRENAL GLANDS: Unremarkable. KIDNEYS AND URETERS: No evidence of hydronephrosis or renal calculus. The ureters are unremarkable. Left renal cyst. PELVIS BLADDER: Unremarkable REPRODUCTIVE: Unremarkable. ABDOMEN & PELVIS STOMACH AND BOWEL: No evidence of bowel obstruction. Few scattered colonic diverticula. PERITONEUM: No evidence of pneumoperitoneum or free fluid. VASCULATURE: Mild atherosclerotic calcifications are present throughout the abdominal aorta and its b ranches. MUSCULOSKELETAL: No acute osseous abnormalities. Mild disc degeneration changes are present throughou t the thoracolumbar spine. LYMPH NODES: No gross evidence for lymphadenopathy. SOFT TISSUE/ABDOMINAL WALL: Fat-containing inguinal hernias. No abnormal fluid collections within the abdominal wall. IMPRESSION: 1. Findings compatible with hollow viscus perforation with accumulation of suspected ingested debris outside the esophagus and the distal mediastinum and extending into the upper abdomen along the stom ach. Surgical consultation recommended. It is noted the esophagram does not demonstrate extravasation of contrast on prior study on 02/15/2023. 2. Postsurgical changes in the gallbladder. No fluid clips within the gallbladder surgical bed. 3. Scattered colonic diverticula. 4. New trace bilateral pleural effusions right greater than left. Findings communicated to Dr. Loki Bui MD on 02/24/2023 6:[address] Raymundo Lemos.
[2023-02-24 19:27] VITALS: BP 106/69; PULSE 67; RESP 16
[2023-02-24] MEDS ORDERED: fentaNYL (PF) 50 MCG/ML 2 ML AMP IVP STA (19:38)
[2023-02-25] MEDS ORDERED: VANCOMYCIN 1,500 MG in SODIUM CHLORIDE 0.9% 500 ML 500 ML IVPB SCH (06:00)
== END 2023-02-24 19:50 | disposition other institution (70) ==
LOC: EC 15:10
DX: K22.3 Perforation of esophagus (principal); K21.9 Gastro-esophageal reflux disease without esophagitis; I10 Essential (primary) hypertension; Z88.6 Allergy status to analgesic agent; Z79.899 Other long term (current) drug therapy
CPT/HCPCS: 36415; 93005; 86900; 86901; 80053; 82150; 83605; 83690; 85025; 85730; 86850; 81001; 71045; 71260; 74177; 99291; 96365; 96368; J2543; J3370; J2270; J2405; J3010; C9113; Q9967

== ENCOUNTER 2023-03-18 17:14 | Inpatient (IN) | payer BC ==
[2023-03-18 18:38] LABS: Basophils % (A) 0 %; Eosinophils # (A) 0.3 k/uL (0-0.7); Eosinophils % (A) 1 %; HCT 42.6 % (39.0-53.0); HGB 14.3 gm/dL (13.0-17.5); Lymphocytes # (A) 1.5 k/uL (1.0-4.8); Lymphocytes % (A) 6 %; MCH 31.8 pg (25.0-35.0); MCHC 33.6 g/dL (31.0-37.0); MCV 94.5 fL (80.0-100.0); Mean Platelet Volume 7.6; Monocytes # (A) 1.1 k/uL (0-1.0); Monocytes % (A) 5 %; Neutrophils % (A) 87 %; Platelet Count 528 k/uL (150-450); RBC 4.51 m/uL (4.30-5.90); RDW 13.4 % (11.5-15.5); WBC 24.2 k/uL (3.8-10.6)
[2023-03-18 18:49] LABS: ALT 17 U/L (4-49); African American GFR (CKD) >90 (>60 ml/min/1.73 sqM); Albumin 3.9 g/dL (3.5-5.0); Anion Gap 13 mmol/L; Blood Urea Nitrogen 12 mg/dL (9-20); Calcium 10.7 mg/dL (8.4-10.2); Carbon Dioxide 22 mmol/L (22-30); Chloride 102 mmol/L (98-107); Glucose 134 mg/dL (74-99); Non-African American GFR(CKD) >90 (>60 ml/min/1.73 sqM); Sodium 137 mmol/L (137-145); Total Bilirubin 0.7 mg/dL (0.2-1.3); Total Protein 7.5 g/dL (6.3-8.2)
[2023-03-18 18:54] LABS: AST 21 U/L (17-59); Alkaline Phosphatase 73 U/L (38-126); Potassium 3.8 mmol/L (3.5-5.1)
[2023-03-18] MEDS ORDERED: IOPAMIDOL CONTRAST (ORAL USE) VIAL PO PRN (19:28)
[2023-03-18 19:33] LABS: C Reactive Protein 4.4 mg/dL (<1.0)
[2023-03-18] MEDS ORDERED: HYDROmorphone 1 MG/ML 1 ML SYRINGE IVP STA (20:01)
[2023-03-18 20:44] LABS: Appearance,Urine Cloudy (Clear); Bacteria,Urine Rare /hpf; Bilirubin,Urine Negative (Negative); Blood,Urine Negative (Negative); Color,Urine Yellow; Glucose,Urine (UA) Negative (Negative); Ketones,Urine Negative (Negative); Leukocyte Esterase,Urine Negative (Negative); Mucus,Urine Few /hpf; Nitrite,Urine Negative (Negative); PH, Urine 6.5 (5.0-8.0); Protein,Urine Trace (Negative); RBC,Urine 1 /hpf (0-5); Specific Gravity,Urine 1.021 (1.001-1.035); Urobilinogen,Urine <2.0 mg/dL (<2.0); WBC,Urine 1 /hpf (0-5)
--- NOTE | 2023-03-18 21:55 | CT ---
EXAMINATION TYPE: CT ChestAbdPelvis w con CT DLP: 1249.5 mGycm, Automated exposure control for dose reduction was used. DATE OF EXAM: 03/18/2023 9:26 PM COMPARISON: 02/24/2023. CLINICAL INDICATION:Male, 62 years old with history of abdominal pain; , All over Abdominal pain x28h rs, with nausea and vomiting. Pt had gallbladder removed 3wks ago Technique: Multiple axial images of the chest, abdomen, and pelvis were obtained. Two-dimensional cor onal and sagittal reconstructions were obtained. Contrast used:100cc mL of Isovue 300 with IV Contrast, Oral contrast used: with Oral Contrast Findings: CHEST: LUNGS/ PLEURA: Demonstration of right pleural effusions with some associated adjacent atelectasis.. N o evidence of focal consolidation. AIRWAY: Patent and unremarkable. HEART: Size within normal limits. MEDIASTINUM: No gross evidence of adenopathy. Resolution of prior debris outside the gastroesophageal tract seen on prior CT on 02/24/2023. VASCULATURE: No aortic aneurysm. MUSCULOSKELETAL: No acute osseous abnormalities. SOFT TISSUES/LYMPH NODES: Unremarkable. LOWER NECK: No significant findings. ABDOMEN: ABDOMEN LIVER: Unremarkable GALLBLADDER AND BILE DUCTS: The gallbladder surgically absent. No evidence of fluid collection within the gallbladder fossa. PANCREAS: Unremarkable. SPLEEN: Unremarkable. ADRENAL GLANDS: Unremarkable. KIDNEYS AND URETERS: No evidence of hydronephrosis or renal calculus. The ureters are unremarkable. Left renal cyst. PELVIS BLADDER: Unremarkable REPRODUCTIVE: Unremarkable. ABDOMEN & PELVIS STOMACH AND BOWEL: There is diffuse circumferential bowel wall thickening of the colon extending from cecum to the descending colon. There is sparing of the sigmoid colon. Wall thickening up to 7 mm. Th e appendix is normal. No evidence of bowel obstruction. Few scattered colonic diverticula. PERITONEUM: No evidence of pneumoperitoneum or free fluid. VASCULATURE: Mild atherosclerotic calcifications are present throughout the abdominal aorta and its b ranches. MUSCULOSKELETAL: No acute osseous abnormalities. Mild disc degeneration changes are present throughou t the thoracolumbar spine. LYMPH NODES: No gross evidence for lymphadenopathy. SOFT TISSUE/ABDOMINAL WALL: Fat-containing inguinal hernias. No abnormal fluid collections within the abdominal wall. IMPRESSION: 1. Long segment of Colitis involving the cecum extending to the descending colon with a sparing of t he sigmoid colon. No evidence of perforation or organizing fluid collection. 2. Previous hollow viscus perforation no longer visualized with resolution of prior debris outside t he gastrointestinal tract. 3. Postsurgical changes in the gallbladder. No fluid clips within the gallbladder surgical bed. 4. Scattered colonic diverticula. 5. Stable right pleural effusion.
[2023-03-18] MEDS ORDERED: NALOXONE 0.4 MG/ML 1 ML VIAL IV PRN (23:46)
[2023-03-18] MEDS ORDERED: ONDANSETRON 4 MG/2 ML VIAL IVP PRN (23:46)
--- NOTE | 2023-03-18 23:51 | ED ---
Abdominal Pain HPI - General Chief Complaint: Abdominal Pain Stated Complaint: abd pain Time Seen by Provider: 03/18/23 18:59 Source: patient Mode of arrival: ambulatory - History of Present Illness Initial Comments: This patient is a 62-year-old man with recent complicated surgical history, who has over the course of the afternoon and into this evening developed right upper abdominal and epigastric pain. Patient had pains there in January and associated vomiting that led him to be evaluated here. As result of that the patient had cholecystectomy but there was also some unexplained pneumomediastinum. He went home and then subsequently came back and the pain increased and he was found to have what sounds like distal esophageal leak with abscess posterior to the esophagus and stomach. This was reportedly drained percutaneously and the patient maintain on antibiotics. MD Complaint: abdominal pain -: hour(s) Location: RUQ, epigastric Radiation: none Migration to: no migration Severity: moderate, severe Quality: cramping, aching Consistency: constant Improves With: nothing Worsens With: nothing Associated Symptoms: nausea, diarrhea - Related Data Home Medications Medication Instructions Recorded Confirmed Atenolol/Chlorthalidone 1 tab PO W/LUNCH 07/13/18 03/18/23 [Atenolol/Chlorthalidone 50-25] allopurinoL [Zyloprim] 300 mg PO W/LUNCH 07/13/18 03/18/23 Fenofibrate Nanocrystallized 145 mg PO W/LUNCH 02/15/23 03/18/23 [Fenofibrate] lisinopriL [Prinivil] 10 mg PO W/LUNCH 02/15/23 03/18/23 Acetaminophen Tab [Tylenol Tab] 1,000 mg PO Q6HR PRN 03/18/23 03/18/23 Pantoprazole [Protonix] 40 mg PO DAILY 03/18/23 03/18/23 Rivaroxaban [Xarelto] 20 mg PO DIRECTED 03/18/23 03/18/23 Previous Rx's Medication Instructions Recorded Amoxic-Pot Clav 875-125Mg 1 tab PO Q12HR 3 Days #6 tab 02/18/23 [Augmentin 875-125] Allergies Allergy/AdvReac Type Severity Reaction Status Date / Time ibuprofen [From Advil] Allergy Rash/Hives Verified 03/18/23 20:03 Review of Systems ROS Statement: Those systems with pertinent positive or pertinent negative responses have been documented in the HPI. ROS Other: All systems not noted in ROS Statement are negative. Constitutional: Denies: fever, chills Respiratory: Denies: cough, dyspnea Cardiovascular: Denies: chest pain, palpitations, edema Gastrointestinal: Reports: abdominal pain, nausea, diarrhea. Denies: vomiting, constipation, melena, hematochezia Genitourinary: Denies: dysuria, hematuria Musculoskeletal: Denies: back pain Skin: Denies: rash Neurological: Denies: headache, weakness Past Medical History Past Medical History: GERD/Reflux, Hyperlipidemia, Hypertension Additional Past Medical History / Comment(s): gout History of Any Multi-Drug Resistant Organisms: None Reported Past Surgical History: Cholecystectomy, Orthopedic Surgery Additional Past Surgical History / Comment(s): surgery on foot bones- shaved bone down. sx to drain abd absess Past Psychological History: No Psychological Hx Reported Smoking Status: Never smoker Past Alcohol Use History: Occasional Past Drug Use History: None Reported General Exam General appearance: alert, in no apparent distress Head exam: Present: atraumatic, normocephalic Eye exam: Present: normal appearance. Absent: scleral icterus, conjunctival injection ENT exam: Present: mucous membranes dry Neck exam: Present: normal inspection Respiratory exam: Present: normal lung sounds bilaterally. Absent: respiratory distress, wheezes, rales, rhonchi, stridor Cardiovascular Exam: Present: regular rate, normal rhythm, normal heart sounds. Absent: systolic murmur, diastolic murmur, rubs, gallop GI/Abdominal exam: Present: soft, tenderness. Absent: distended, guarding, rebound, rigid, organomegaly, pulsatile mass, hernia Extremities exam: Present: normal inspection, normal capillary refill. Absent: pedal edema, calf tenderness Back exam: Present: normal inspection. Absent: CVA tenderness (R), CVA tenderness (L) Neurological exam: Present: alert Skin exam: Present: warm, dry, intact, normal color. Absent: rash Course Vital Signs 03/18/23 03/18/23 03/18/23 17:58 19:08 20:00 Temperature 98 F 98.8 F Pulse Rate 87 96 94 Respiratory 18 16 18 Rate Blood Pressure 114/64 136/95 145/89 O2 Sat by Pulse 97 98 97 Oximetry 03/18/23 03/18/23 03/18/23 21:10 22:09 23:06 Temperature Pulse Rate 92 108 H 101 H Respiratory 19 18 17 Rate Blood Pressure 125/86 122/91 122/83 O2 Sat by Pulse 96 94 L 93 L Oximetry 03/18/23 23:59 Temperature 98.4 F Pulse Rate 101 H Respiratory 16 Rate Blood Pressure 130/98 O2 Sat by Pulse 95 Oximetry Medical Decision Making - Lab Data Result diagrams: 03/18/23 18:27 03/18/23 18:27 Lab Results 03/18/23 03/18/23 03/18/23 Range/Units 18:27 18: 18: WBC 24.2 H (3.8-10.6) k/uL RBC 4.51 (4.30-5.90) m/uL Hgb 14.3 (13.0-17.5) gm/dL Hct 42.6 (39.0-53.0) % MCV 94.5 (80.0-100.0) fL MCH 31.8 (25.0-35.0) pg MCHC 33.6 (31.0-37.0) g/dL RDW 13.4 (11.5-15.5) % Plt Count 528 H (150-450) k/uL MPV 7.6 Neutrophils % 87 % Lymphocytes % 6 % Monocytes % 5 % Eosinophils % 1 % Basophils % 0 % Neutrophils # 21.0 H (1.3-7.7) k/uL Lymphocytes # 1.5 (1.0-4.8) k/uL Monocytes # 1.1 H (0-1.0) k/uL Eosinophils # 0.3 (0-0.7) k/uL Basophils # 0.0 (0-0.2) k/uL Sodium 137 (137-145) mmol/L Potassium 3.8 (3.5-5.1) mmol/L Chloride 102 (98-107) mmol/L Carbon Dioxide 22 (22-30) mmol/L Anion Gap 13 mmol/L BUN 12 (9-20) mg/dL Creatinine 0.67 (0.66-1.25) mg/dL Est GFR (CKD-EPI)AfAm >90 (>60 ml/min/1.73 sqM) Est GFR (CKD-EPI)NonAf >90 (>60 ml/min/1.73 sqM) Glucose 134 H (74-99) mg/dL Plasma Lactic Acid Neptali 1.7 (0.7-2.0) mmol/L Calcium 10.7 H (8.4-10.2) mg/dL Total Bilirubin 0.7 (0.2-1.3) mg/dL AST 21 (17-59) U/L ALT 17 (4-49) U/L Alkaline Phosphatase 73 (38-126) U/L C-Reactive Protein (<1.0) mg/dL Total Protein 7.5 (6.3-8.2) g/dL Albumin 3.9 (3.5-5.0) g/dL Amylase (30-110) U/L Lipase (23-300) U/L Urine Color Urine Appearance (Clear) Urine pH (5.0-8.0) Ur Specific University (1.001-1.035) Urine Protein (Negative) Urine Glucose (UA) (Negative) Urine Ketones (Negative) Urine Blood (Negative) Urine Nitrite (Negative) Urine Bilirubin (Negative) Urine Urobilinogen (<2.0) mg/dL Ur Leukocyte Esterase (Negative) Urine RBC (0-5) /hpf Urine WBC (0-5) /hpf Urine Bacteria (None) /hpf Urine Mucus (None) /hpf 03/18/23 03/18/23 03/18/23 Range/Units 18:27 19:25 19:25 WBC (3.8-10.6) k/uL RBC (4.30-5.90) m/uL Hgb (13.0-17.5) gm/dL Hct (39.0-53.0) % MCV (80.0-100.0) fL MCH (25.0-35.0) pg MCHC (31.0-37.0) g/dL RDW (11.5-15.5) % Plt Count (150-450) k/uL MPV Neutrophils % % Lymphocytes % % Monocytes % % Eosinophils % % Basophils % % Neutrophils # (1.3-7.7) k/uL Lymphocytes # (1.0-4.8) k/uL Monocytes # (0-1.0) k/uL Eosinophils # (0-0.7) k/uL Basophils # (0-0.2) k/uL Sodium (137-145) mmol/L Potassium (3.5-5.1) mmol/L Chloride (98-107) mmol/L Carbon Dioxide (22-30) mmol/L Anion Gap mmol/L BUN (9-20) mg/dL Creatinine (0.66-1.25) mg/dL Est GFR (CKD-EPI)AfAm (>60 ml/min/1.73 sqM) Est GFR (CKD-EPI)NonAf (>60 ml/min/1.73 sqM) Glucose (74-99) mg/dL Plasma Lactic Acid Neptali 2.0 (0.7-2.0) mmol/L Calcium (8.4-10.2) mg/dL Total Bilirubin (0.2-1.3) mg/dL AST (17-59) U/L ALT (4-49) U/L Alkaline Phosphatase (38-126) U/L C-Reactive Protein 4.4 H (<1.0) mg/dL Total Protein (6.3-8.2) g/dL Albumin (3.5-5.0) g/dL Amylase 53 (30-110) U/L Lipase 38 (23-300) U/L Urine Color Yellow Urine Appearance Cloudy (Clear) Urine pH 6.5 (5.0-8.0) Ur Specific University 1.021 (1.001-1.035) Urine Protein Trace H (Negative) Urine Glucose (UA) Negative (Negative) Urine Ketones Negative (Negative) Urine Blood Negative (Negative) Urine Nitrite Negative (Negative) Urine Bilirubin Negative (Negative) Urine Urobilinogen <2.0 (<2.0) mg/dL Ur Leukocyte Esterase Negative (Negative) Urine RBC 1 (0-5) /hpf Urine WBC 1 (0-5) /hpf Urine Bacteria Rare H (None) /hpf Urine Mucus Few H (None) /hpf Disposition Clinical Impression: Colitis, Abdominal pain Disposition: ADMITTED IP TO THIS HOSP Condition: Fair Is patient prescribed a controlled substance at d/c from ED?: No
[2023-03-18] MEDS: SODIUM CHLORIDE 0.9% 1,000 ML IV SCH (23:55)
[2023-03-19] MEDS: MORPHINE SULFATE 4 MG/ML SYRINGE IV PRN ×2 (01:01→08:27)
--- NOTE | 2023-03-19 02:50 | P.HPIM ---
History of Present Illness H&P Date: 03/18/23 Chief Complaint: abd pain 62 year old male with hypertension he is coming in for abd pain that suddenly started yesterday , he describes diffuse abd pain , mainly in the epigastric and RUQ. colicky in nature, 8/10 in severity, non radiating, no back pain, no nausea, but was self inducing vomiting to help get some relief. he reports loose stools for about a week now. denies any GI bleeding he recently was evaluated in the hospital and had cholecystectomy February 18 of this year, however after releasing him from the hospital , he returns with persistent epigastric abd pain and found to have pneumomediastinum and retroesophageal abscess collection , he was transferred to different facily for drainage and further care. he was released about a week ago and since then he has been maintained on oral antibiotics. he also reports that about a week ago he had a thoracentesis with brownish fluid drained. denies any fever, chills, GI bleeding , urinary changes, fever or chills. CT abd done in the ED showed colitis from the cecum to the mid descending colon . Review of Systems Pertinent positives as noted in HPI. All other systems were reviewed and are negative Past Medical History Past Medical History: GERD/Reflux, Hyperlipidemia, Hypertension Additional Past Medical History / Comment(s): gout History of Any Multi-Drug Resistant Organisms: None Reported Past Surgical History: Cholecystectomy, Orthopedic Surgery Additional Past Surgical History / Comment(s): surgery on foot bones- shaved bone down. sx to drain abd absess Past Psychological History: No Psychological Hx Reported Smoking Status: Never smoker Past Alcohol Use History: Occasional Past Drug Use History: None Reported Medications and Allergies Home Medications and Allergies Comment(s): Constitutional: No acute distress, conversant, pleasant Eyes: Anicteric sclerae, moist conjunctiva, Pupils equal round reactive to light ENMT: NC/AT Oropharynx clear, no erythema, or exudates Neck: Supple, no masses, or JVD No carotid bruits No thyromegaly Lungs: decrease breath sounds over right lower lung Normal respiratory effort, no accessory muscle use Cardiovascular: Heart regular in rate and rhythm, No murmurs, gallops, or rubs No peripheral edema Abdominal: Soft tenderness to palpation over flanks bilaterally and upper abd ,with voluntary guarding, no rebound or rigidity Abdomen moving with respiration Normoactive bowel sounds No hepatomegaly, No splenomegaly No palpable mass No abdominal wall hernia noted surgical scars looks dry and intact Skin: Normal temperature, tone, texture, turgor Extremities: No digital cyanosis No clubbing Pedal pulses intact and symmetrical Radial pulses intact and symmetrical No calf tenderness Psychiatric: Alert and oriented to person, place and time Appropriate affect Neuro Muscles Strength 5/5 in all 4 extremities Sensation to light touch grossly present throughout Cranial nerves II-XII grossly intact Lymphatics: no palpable cervical or supraclavicular lymph nodes Home Medications Medication Instructions Recorded Confirmed Type Atenolol/Chlorthalidone 1 tab PO W/LUNCH 07/13/18 03/18/23 History [Atenolol/Chlorthalidone 50-25] allopurinoL [Zyloprim] 300 mg PO W/LUNCH 07/13/18 03/18/23 History Fenofibrate Nanocrystallized 145 mg PO W/LUNCH 02/15/23 03/18/23 History [Fenofibrate] lisinopriL [Prinivil] 10 mg PO W/LUNCH 02/15/23 03/18/23 History Amoxic-Pot Clav 875-125Mg 1 tab PO Q12HR 3 Days #6 tab 02/18/23 03/18/23 Rx [Augmentin 875-125] Acetaminophen Tab [Tylenol Tab] 1,000 mg PO Q6HR PRN 03/18/23 03/18/23 History Pantoprazole [Protonix] 40 mg PO DAILY 03/18/23 03/18/23 History Rivaroxaban [Xarelto] 20 mg PO DIRECTED 03/18/23 03/18/23 History Allergies Allergy/AdvReac Type Severity Reaction Status Date / Time ibuprofen [From Advil] Allergy Rash/Hives Verified 03/18/23 20:03 Physical Exam Vitals: Vital Signs Temp Pulse Resp BP Pulse Ox 03/18/23 22:09 108 H 18 122/91 94 L 03/18/23 21:10 92 19 125/86 96 03/18/23 20:00 94 18 145/89 97 03/18/23 19:08 98.8 F 96 16 136/95 98 03/18/23 17:58 98 F 87 18 114/64 97 Intake and Output 03/18/23 03/18/23 03/18/23 06:59 14:59 22:59 Other: Weight 88.451 kg Results CBC & Chem 7: 03/18/23 18:27 03/18/23 18:27 Labs: Abnormal Lab Results - Last 24 Hours (Table) 03/18/23 03/18/23 03/18/23 Range/Units 18:27 18:27 18:27 WBC 24.2 H (3.8-10.6) k/uL Plt Count 528 H (150-450) k/uL Neutrophils # 21.0 H (1.3-7.7) k/uL Monocytes # 1.1 H (0-1.0) k/uL Glucose 134 H (74-99) mg/dL Calcium 10.7 H (8.4-10.2) mg/dL C-Reactive Protein 4.4 H (<1.0) mg/dL Urine Protein (Negative) Urine Bacteria (None) /hpf Urine Mucus (None) /hpf 03/18/23 Range/Units 19:25 WBC (3.8-10.6) k/uL Plt Count (150-450) k/uL Neutrophils # (1.3-7.7) k/uL Monocytes # (0-1.0) k/uL Glucose (74-99) mg/dL Calcium (8.4-10.2) mg/dL C-Reactive Protein (<1.0) mg/dL Urine Protein Trace H (Negative) Urine Bacteria Rare H (None) /hpf Urine Mucus Few H (None) /hpf Assessment and Plan Assessment: 62 year old male coming infor abd pain associated with diarrhea. I discussed the case with ED doc, concerns for C. diff especially in light of recent antibiotics use. I accepted the admission to rule out Cdiff. and further manageme nt of colitis with anticipated length of stay > 2 midnights sepsis with possible underlying C diff acute colitis diffuse plan follow up cultures check C diff PCR started on vanco PO 125 mg in the ED IVF hydration with normal saline 125 cc per hour pain control with opiates monitor vital signs clear liquid diet CRP elevated 4.4 CT abd pelvis showing colitis starting from the cecum to the mid descending colon blood work other hi unremarkable , Na 137, BUN 12 , Cr 0.67, unremarkable renal function full code DVT PPX lovenox 40 mg sc daily
[2023-03-19] MEDS: ACETAMINOPHEN TAB 325 MG TAB PO PRN ×2 (06:55→20:36)
[2023-03-19] MEDS: SODIUM CHLORIDE 0.9% 1,000 ML IV SCH ×3 (07:30→22:04)
[2023-03-19] MEDS: VANCOMYCIN 125 MG CAPSULE PO SCH ×4 (08:26→22:03)
[2023-03-19] MEDS: metroNIDAZOLE-NS PMX 500 MG in SALINE 1 100ML.BAG IVPB SCH ×3 (08:27→23:21)
[2023-03-19] MEDS ORDERED: ENOXAPARIN 40 MG/0.4 ML SYRINGE SQ SCH (09:00)
--- NOTE | 2023-03-19 09:02 | P.CONS ---
History of Present Illness - Reason for Consult Consult date: 03/19/23 Colitis Requesting physician: Ab Meza - Chief Complaint Abdominal pain - History of Present Illness This is a pleasant 62-year-old male who presented to the emergency department with complaints of lower abdominal pain associated with diarrhea for the last 2 days duration. Patient states he's had multiple loose nonbloody stools a day up to 12 since Wednesday. Stated that Wednesday afternoon he started having fever and then abdominal pain and diarrhea. States he also had some nausea and vomiting on that day only. Patient has had a couple of recent hospitalizations in January of this year. He had been admitted to the hospital in mid January for complaints of right upper quadrant pain and was found to have pneumomediastinum on computed tomography scan. Cardiothoracic was on consult as well as gastroenterology. Patient underwent barium swallow that showed no evidence of a leak. No endoscopic evaluation done at that time. During that hospitalization he underwent a cholecystectomy on 02/18/2023. He presented back to the emergency department 02/24/2023 with complaints of severe right upper quadrant and epigastric pain. At that time he had a repeat CT of the chest abdomen and pelvis with reported findings of hollow viscus perforation with accumulation is suspected ingested debris outside the esophagus and the distal mediastinum extending into the upper abdomen along the stomach. Patient was transferred to [facility] where he underwent surgical intervention and drain placement of abscess. States drain was removed last week. He was discharged on Augmentin and last taken on Wednesday. Patient had a CT of the abdomen and pelvis that reported colitis. Gastroenterology was consulted for the above. Stool collected and sent for C. diff which was negative. Patient was started on vancomycin 125 mg by mouth 4 times a day. He states abdominal pain is now improving some, however he has complaints of headache throughout the night. Still continues to have diarrhea, nonbloody. He's been afebrile. No nausea or vomiting. Tolerating clear liquid diet. Imaging CT of the chest abdomen and pelvis which reported long segment colitis involving the cecum extending to the descending colon laying with a sparing of the sigmoid colon. No evidence of perforation or organized fluid collection. Previous hollow viscus perforation no longer visualized with resolution of prior debris outside GI tract. Postsurgical changes in the gallbladder fluid clips within the gallbladder surgical bed. Scattered colonic diverticula. Stable right pleural effusion. Labs WBC 24.2 hemoglobin 14.3 hematocrit 42.6 platelet count 528,000 sodium 137 potassium 3.8 BUN 12 creatinine 0.67 glucose 134 total bilirubin 0.7 AST 21 ALT 17 alkaline phosphatase 73 a C-reactive protein 4.4 amylase 53 lipase 38 C. diff EIA negative Review of Systems REVIEW OF SYSTEMS: CARDIOPULMONARY: No chest pain or shortness of breath. Gastrointestinal: Low diffuse abdominal pain. No nausea or vomiting. No hematemesis, coffee-ground emesis. No rectal bleeding, or melena. Nonbloody diarrhea, multiple times a day. GENITOURINARY: No dysuria or hematuria. MUSCULOSKELETAL: Reports normal range of motion. SKIN: No rashes. No jaundice. ENDOCRINE: No chills, fevers. No excessive weight gain or loss. No polydipsia or polyuria. PSYCHIATRIC: Unremarkable. NEUROLOGY: No change in mental status. Denies dizziness. Reports headache. ENT: Vision unremarkable. CONSTITUTIONAL: No recent weight loss. No fever, chills, night sweats. Past Medical History Past Medical History: GERD/Reflux, Hyperlipidemia, Hypertension Additional Past Medical History / Comment(s): gout History of Any Multi-Drug Resistant Organisms: None Reported Past Surgical History: Cholecystectomy, Orthopedic Surgery Additional Past Surgical History / Comment(s): surgery on foot bones- shaved bone down. sx to drain abd absess Past Anesthesia/Blood Transfusion Reactions: No Reported Reaction Past Psychological History: No Psychological Hx Reported Smoking Status: Never smoker Past Alcohol Use History: Occasional Past Drug Use History: None Reported Medications and Allergies Home Medications Medication Instructions Recorded Confirmed Type Atenolol/Chlorthalidone 1 tab PO W/LUNCH 07/13/18 03/18/23 History [Atenolol/Chlorthalidone 50-25] allopurinoL [Zyloprim] 300 mg PO W/LUNCH 07/13/18 03/18/23 History Fenofibrate Nanocrystallized 145 mg PO W/LUNCH 02/15/23 03/18/23 History [Fenofibrate] lisinopriL [Prinivil] 10 mg PO W/LUNCH 02/15/23 03/18/23 History Amoxic-Pot Clav 875-125Mg 1 tab PO Q12HR 3 Days #6 tab 02/18/23 03/18/23 Rx [Augmentin 875-125] Acetaminophen Tab [Tylenol Tab] 1,000 mg PO Q6HR PRN 05/18/23 05/18/23 History Pantoprazole [Protonix] 40 mg PO DAILY 03/18/23 03/18/23 History Rivaroxaban [Xarelto] 20 mg PO DIRECTED 03/18/23 03/18/23 History Allergies Allergy/AdvReac Type Severity Reaction Status Date / Time ibuprofen [From Advil] Allergy Rash/Hives Verified 03/18/23 20:03 Physical Exam Vitals: Vital Signs Temp Pulse Pulse Resp BP BP Pulse Ox 03/19/23 02:00 98.1 F 87 16 142/88 96 03/18/23 23:59 98.4 F 101 H 16 130/98 95 03/18/23 23:06 101 H 17 122/83 93 L 03/18/23 22:09 108 H 18 122/91 94 L 03/18/23 21:10 92 19 125/86 96 03/18/23 20:00 94 18 145/89 97 03/18/23 19:08 98.8 F 96 16 136/95 98 03/18/23 17:58 98 F 87 18 114/64 97 Intake and Output 03/18/23 03/18/23 03/19/23 14:59 22:59 06:59 Other: # Voids 1 # Bowel Movements 1 Weight 88.451 kg 88.451 kg General appearance: The patient is alert, oriented, appears in no acute distress. HET: Head is normocephalic and atraumatic. Conjunctiva pink. Sclera anicteric. Neck: Supple without lymphadenopathy. Trachea midline. Heart: S1 S2. Regular rate and rhythm. Lungs: Clear to auscultation. Abdomen: Soft, diffuse lower abdominal tenderness to palpation, nondistended with bowel sounds. No guarding or rigidity. Skin: No rashes. No jaundice. Extremities: Normal skin color and turgor. No pedal edema. Neurological: No focal deficits. Alert and oriented x3. Results CBC & Chem 7: 03/18/23 18:27 03/18/23 18:27 Labs: Abnormal Lab Results - Last 24 Hours (Table) 03/18/23 03/18/23 03/18/23 Range/Units 18:27 18:27 18:27 WBC 24.2 H (3.8-10.6) k/uL Plt Count 528 H (150-450) k/uL Neutrophils # 21.0 H (1.3-7.7) k/uL Monocytes # 1.1 H (0-1.0) k/uL Glucose 134 H (74-99) mg/dL Calcium 10.7 H (8.4-10.2) mg/dL C-Reactive Protein 4.4 H (<1.0) mg/dL Urine Protein (Negative) Urine Bacteria (None) /hpf Urine Mucus (None) /hpf 03/18/23 Range/Units 19:25 WBC (3.8-10.6) k/uL Plt Count (150-450) k/uL Neutrophils # (1.3-7.7) k/uL Monocytes # (0-1.0) k/uL Glucose (74-99) mg/dL Calcium (8.4-10.2) mg/dL C-Reactive Protein (<1.0) mg/dL Urine Protein Trace H (Negative) Urine Bacteria Rare H (None) /hpf Urine Mucus Few H (None) /hpf Assessment and Plan (1) Colitis Narrative/Plan: 62-year-old male presenting for low abdominal pain who has had recent hospitalizations for right upper quadrant epigastric pain found to have pneumo mediastinum, subsequent cholecystectomy on 02/18/2023 with again rehospitalization for retroesophageal abscess with been on multiple antibiotics since the end of January, last being discharged on Augmentin which he was currently still on. Patient presents with lower abdominal pain with multiple episodes of nonbloody diarrhea. At times up to 12 times a day. First associated with some nausea and vomiting, and fever 2 days ago. Stool testing for C. diff EIA was negative however with multiple doses of antibiotics over the last 1 month duration there is still strong suspicion for possible C. diff colitis. Vancomycin 125 mg by mouth 4 times a day ordered, agree with that and will and Flagyl 500 mg IV every 8 hours. Continue 10 days duration. No plans at this time for colonoscopy. Patient will need outpatient follow-up with gastroenterology for colonoscopy in 6-8 weeks. Current Visit: Yes Status: Acute Code(s): K52.9 - NONINFECTIVE GASTROENTERITIS AND COLITIS, UNSPECIFIED SNOMED Code(s): 25893735 (2) Abdominal pain Current Visit: Yes Status: Acute Code(s): R10.9 - UNSPECIFIED ABDOMINAL PAIN SNOMED Code(s): 14739786 Plan: 1. Continue symptomatic and supportive care 2. Continue vancomycin 125 mg 4 times a day, will add Flagyl 500 mg IV every 8 hours continue for 10 days 3. Clear liquid diet and advance as tolerated 4. No plan for an endoscopic evaluation 5. Discussed with patient he will need outpatient follow-up with [facility] in 4-6 weeks to schedule outpatient colonoscopy Thank you for allowing us to participate in the care of the patient, the GI service will sign off, gastroenterology will not be available at the hospital this weekend and through next week. If further evaluation by gastroenterology is required the patient will need transfer as per the primary team's discretion. Dr. Erica Charles I agree with the dictator's note, documented as a scribe by Mily Albert.
[2023-03-19 10:11] LABS: HCT 36.5 % (39.0-53.0); HGB 12.3 gm/dL (13.0-17.5); MCH 32.9 pg (25.0-35.0); MCHC 33.8 g/dL (31.0-37.0); MCV 97.2 fL (80.0-100.0); Mean Platelet Volume 7.9; Platelet Count 394 k/uL (150-450); RBC 3.76 m/uL (4.30-5.90); RDW 13.4 % (11.5-15.5); WBC 18.7 k/uL (3.8-10.6)
[2023-03-19 10:22] LABS: African American GFR (CKD) >90 (>60 ml/min/1.73 sqM); Anion Gap 13 mmol/L; Blood Urea Nitrogen 9 mg/dL (9-20); Calcium 9.4 mg/dL (8.4-10.2); Carbon Dioxide 21 mmol/L (22-30); Chloride 101 mmol/L (98-107); Glucose 103 mg/dL (74-99); Non-African American GFR(CKD) >90 (>60 ml/min/1.73 sqM); Potassium 3.6 mmol/L (3.5-5.1); Sodium 135 mmol/L (137-145)
[2023-03-19] MEDS: HYDROmorphone 1 MG/ML 1 ML SYRINGE IVP PRN ×3 (12:01→22:05)
--- NOTE | 2023-03-19 18:46 | P.PN ---
Subjective Progress Note Date: 03/19/23 Patient is a 62-year-old male with hypertension, dyslipidemia, GERD, complicated hospital stay after cholecystectomy which resulted in pneumomediastinum and retroesophageal abscess collection. He was transferred to [facility] and was discharged approximately 2 weeks ago and has been on oral antibiotics. He also required outpatient thoracentesis one week ago. In the ER he underwent an extensive evaluation. CT abdomen and pelvis was completed which showed colitis extending from the cecum to the descending colon with sparing of the sigmoid colon. There was concerns of possible C. diff infection. She was subsequently started on oral vancomycin. C. diff testing did come back negative. She was evaluated by gastroenterology who felt this was likely a false negative as the patient had symptoms consistent with C. diff. IV Flagyl was added. Patient seen and examined at bedside. He continues to have some abdominal pain. He denies any nausea or vomiting. He denies any chest pain or shortness of breath. He is slightly worried about his continued effusion that required drainage last week down at his outpatient appointment on [address] with his [facility] doctors. Vital signs reviewed General: nontoxic, no distress, appears at stated age Cardiovascular: S1S2 reg, no murmur, positive posterior tibial pulse bilateral, Lungs: CTA bilateral, no rhonchi, no rales , no accessory muscle use Abdominal: soft, + tender to palpation diffusely, no guarding, no appreciable organomegaly Ext: no gross muscle atrophy, no edema, no contractures Neuro: CN II-XI grossly intact, no focal neuro deficits Psych: Alert, oriented, appropriate affect Assessment: Acute colitis with sepsis, suspect C. diff HTN HLD GERD Gout Imaging: None New Data Review: Vital sign review and temperature 98.5, pulse 65, respirations 18, blood pressure 147/83, O2 sat 96% on room air Laboratory analysis shows white blood cell, of 18.7, hemoglobin 12.3, sodium 135, carbon dioxide 21, creatinine 0.62, glucose 103. C. diff testing was negative. Plan: - Case discussied with [employer] for GI and most likely C diff despite negative testing due to hx of recent ABX, CT scan. Will need outpatient follow-up with GI in 4-6 weeks for colonoscopy. - D/C morphine and start Dilaudid 1 mg IV q3H - IV fluids -Resume home meds allopurinol 300 mg daily, atenolol 50 mg daily, chlorthalidone 25 mg daily, lisinopril 10 mg daily, Protonix 40 mg daily, rinsing Xarelto 20 mg daily -Continue with Vanco 125 mg by mouth 3 times daily and metronidazole 500 mg IV 3 times daily - due to sepsis and NPO status will need repeat CBC and BMP in AM DVT prophylaxis: xarelto Anticipated discharge date: pending clinical course Anticipated discharge place: pending clinical course This dictation was prepared using [employer] voice recognition software. Though every attempt is made to correct errors during during dictation some may still exist. Objective - Vital Signs Vital signs: Vital Signs Temp 97.9 F 03/19/23 13:49 Pulse 100 03/19/23 13:49 Resp 16 03/19/23 13:49 BP 122/77 03/19/23 13:49 Pulse Ox 97 03/19/23 13:49 FiO2 Intake & Output 03/18/23 03/19/23 03/19/23 18:59 06:59 18:59 Weight 88.451 kg 88.451 kg Other: # Voids 1 1 # Bowel Movements 1 - Labs CBC & Chem 7: 03/19/23 09:25 03/19/23 09:25 Labs: Abnormal Lab Results - Last 24 Hours (Table) 03/18/23 03/18/23 03/18/23 Range/Units 18:27 18:27 19:25 WBC (3.8-10.6) k/uL RBC (4.30-5.90) m/uL Hgb (13.0-17.5) gm/dL Hct (39.0-53.0) % Sodium (137-145) mmol/L Carbon Dioxide (22-30) mmol/L Creatinine (0.66-1.25) mg/dL Glucose 134 H (74-99) mg/dL Calcium 10.7 H (8.4-10.2) mg/dL C-Reactive Protein 4.4 H (<1.0) mg/dL Urine Protein Trace H (Negative) Urine Bacteria Rare H (None) /hpf Urine Mucus Few H (None) /hpf 03/19/23 03/19/23 Range/Units 09:25 09:25 WBC 18.7 H (3.8-10.6) k/uL RBC 3.76 L (4.30-5.90) m/uL Hgb 12.3 L (13.0-17.5) gm/dL Hct 36.5 L (39.0-53.0) % Sodium 135 L (137-145) mmol/L Carbon Dioxide 21 L (22-30) mmol/L Creatinine 0.62 L (0.66-1.25) mg/dL Glucose 103 H (74-99) mg/dL Calcium (8.4-10.2) mg/dL C-Reactive Protein (<1.0) mg/dL Urine Protein (Negative) Urine Bacteria (None) /hpf Urine Mucus (None) /hpf Microbiology - Last 24 Hours (Table) 03/19/23 01:12 Stool Culture - Preliminary Stool
[2023-03-20] MEDS: SODIUM CHLORIDE 0.9% 1,000 ML IV SCH ×2 (06:20→17:59)
[2023-03-20] MEDS: RIVAROXABAN 20 MG TAB PO SCH (08:49)
[2023-03-20] MEDS: PANTOPRAZOLE 40 MG TABLET PO SCH (08:49)
[2023-03-20] MEDS: VANCOMYCIN 125 MG CAPSULE PO SCH ×4 (08:49→20:57)
[2023-03-20] MEDS: metroNIDAZOLE-NS PMX 500 MG in SALINE 1 100ML.BAG IVPB SCH ×3 (08:50→23:48)
[2023-03-20] MEDS: HYDROmorphone 1 MG/ML 1 ML SYRINGE IVP PRN ×3 (08:56→20:56)
[2023-03-20 09:15] LABS: HCT 34.7 % (39.6-50.0); HGB 11.1 g/dL (13.0-17.0); MCH 31.5 pg (27.0-32.0); MCV 98.6 fL (80.0-97.0); Mean Platelet Volume 10.1 fL (9.5-12.2); NRBC Per 100 WBC 0 /100 WBCS (0.0-0.0); Platelet Count 336 X 10*3/uL (140-440); RBC 3.52 X 10*6/uL (4.40-5.60); RDW 13.3 % (11.5-14.5); WBC 14.28 X 10*3/uL (4.50-10.00)
[2023-03-20 10:16] LABS: African American GFR (CKD) 116.4 (60.0-200.0); Anion Gap 11.9 mmol/L (10.00-18.00); BUN/Creat Ratio 6.14 Ratio (12.00-20.00); Blood Urea Nitrogen 4.3 mg/dL (9.0-27.0); Calcium 9.1 mg/dL (8.7-10.3); Carbon Dioxide 23.1 mmol/L (20.0-27.5); Magnesium 1.5 mg/dL (1.5-2.4); Non-African American GFR(CKD) 100.4 (60.0-200.0); Phosphorus 2.8 mg/dL (2.4-5.1); Potassium 3.6 mmol/L (3.5-5.5)
--- NOTE | 2023-03-20 10:29 | P.PN ---
Subjective Progress Note Date: 03/20/23 Patient is a 62-year-old male with hypertension, dyslipidemia, GERD, complicated hospital stay after cholecystectomy which resulted in pneumomediastinum and retroesophageal abscess collection. He was transferred to [facility] and was discharged approximately 2 weeks ago and has been on oral antibiotics. He also required outpatient thoracentesis one week ago. In the ER he underwent an extensive evaluation. CT abdomen and pelvis was completed which showed colitis extending from the cecum to the descending colon with sparing of the sigmoid colon. There was concerns of possible C. diff infection. She was subsequently started on oral vancomycin. C. diff testing did come back negative. She was evaluated by gastroenterology who felt this was likely a false negative as the patient had symptoms consistent with C. diff. IV Flagyl was added. Patient seen and examined at bedside. His belly pain is better, but he is still getting some spasms. He reports that every time he urinates he has a BM and it is all liquid. He has had 5 BM in approx 3 hours. Vital signs reviewed General: nontoxic, no distress, appears at stated age Cardiovascular: S1S2 reg, no murmur, positive posterior tibial pulse bilateral, Lungs: CTA bilateral, no rhonchi, no rales , no accessory muscle use Abdominal: soft, + tender to palpation diffusely, no guarding, no appreciable organomegaly Ext: no gross muscle atrophy, no edema, no contractures Neuro: CN II-XI grossly intact, no focal neuro deficits Psych: Alert, oriented, appropriate affect Assessment: Acute colitis with sepsis, suspect C. diff HTN HLD GERD Gout Hypomagnesemia Imaging: None New Data Review: Vital sign review and temperature 98.5, pulse 65, respirations 18, blood pressure 147/83, O2 sat 96% on room air Laboratory analysis shows white blood cell, of 18.7, hemoglobin 12.3, sodium 135, carbon dioxide 21, creatinine 0.62, glucose 103. C. diff testing was negative. Plan: - Repeat C diff testing as clinical scenario is most consistent with C diff colitis. - outpatient follow-up with GI in 4-6 weeks for colonoscopy. - Dilaudid 1 mg IV q3H - IV fluids to 75 cc/hr - Magnesium 1 gram IVPB - Allopurinol 300 mg daily, atenolol 50 mg daily, chlorthalidone 25 mg daily, lisinopril 10 mg daily, Protonix 40 mg daily, rinsing Xarelto 20 mg daily - Continue with Vanco 125 mg by mouth 3 times daily and metronidazole 500 mg IV 3 times daily - due to sepsis and clear liquid diet will need repeat CBC and BMP in AM DVT prophylaxis: xarelto Anticipated discharge date: pending clinical course Anticipated discharge place: pending clinical course This dictation was prepared using [employer] voice recognition software. Though every attempt is made to correct errors during during dictation some may still exist. Objective - Vital Signs Vital signs: Vital Signs Temp 98.5 F 03/20/23 06:55 Pulse 74 03/20/23 06:55 Resp 18 03/20/23 06:55 BP 124/77 03/20/23 06:55 Pulse Ox 95 03/20/23 06:55 FiO2 Intake & Output 03/19/23 03/20/23 03/20/23 18:59 06:59 18:59 Intake Total 2039 Balance 2039 Intake: Intake, IV Titration 1560 Amount Sodium Chloride 0.9% 1, 1560 000 ml @ 130 mls/hr IV . [id number] [facility] Rx#:[id number] Oral 480 Other: # Voids 1 2 # Bowel Movements 1 - Labs CBC & Chem 7: 03/20/23 06:29 03/20/23 06:29 Labs: Abnormal Lab Results - Last 24 Hours (Table) 03/19/23 03/20/23 03/20/23 Range/Units 09:25 06:29 06:29 WBC 14.28 H (4.50-10.00) X 10*3/uL RBC 3.52 L (4.40-5.60) X 10*6/uL Hgb 11.1 L (13.0-17.0) g/dL Hct 34.7 L (39.6-50.0) % MCV 98.6 H (80.0-97.0) fL Sodium 135 L (137-145) mmol/L Carbon Dioxide 21 L (22-30) mmol/L BUN 4.3 L (9.0-27.0) mg/dL Creatinine 0.62 L (0.66-1.25) mg/dL BUN/Creatinine Ratio 6.14 L (12.00-20.00) Ratio Glucose 103 H (74-99) mg/dL Microbiology - Last 24 Hours (Table) 03/19/23 01:12 Stool Culture - Preliminary Stool
[2023-03-20] MEDS ORDERED: POTASSIUM CHLORIDE 20 MEQ in WATER FOR INJECTION 1 100ML.BAG IVPB ONE (11:30)
[2023-03-20] MEDS ORDERED: MAGNESIUM SULFATE-D5W PMX 1 GM in DEXTROSE/WATER 1 100ML.BAG IVPB ONE (11:30)
[2023-03-20] MEDS: ACETAMINOPHEN TAB 325 MG TAB PO PRN (12:08)
[2023-03-20] MEDS ORDERED: NON FORMULARY DRUG (Atenolol/Chlorthalidone [Atenolol/Chlorthalidone 50-25] 1 EACH Tablet) PO SCH (12:30)
[2023-03-20] MEDS: allopurinoL 300 MG TAB PO SCH (12:47)
[2023-03-20] MEDS: lisinopriL 10 MG TAB PO SCH (12:47)
[2023-03-20] MEDS: CHLORTHALIDONE 25 MG TAB PO SCH (12:47)
[2023-03-20] MEDS: atenoloL 50 MG TAB PO SCH (12:47)
[2023-03-21] MEDS: SODIUM CHLORIDE 0.9% 1,000 ML IV SCH ×3 (06:05→22:50)
[2023-03-21] MEDS: HYDROmorphone 1 MG/ML 1 ML SYRINGE IVP PRN ×4 (06:27→22:50)
[2023-03-21 07:51] LABS: HCT 35.1 % (39.0-53.0); HGB 11.6 gm/dL (13.0-17.5); MCHC 33.1 g/dL (31.0-37.0); MCV 96.5 fL (80.0-100.0); Mean Platelet Volume 7.8; Platelet Count 349 k/uL (150-450); RBC 3.64 m/uL (4.30-5.90); RDW 13.3 % (11.5-15.5); WBC 9.9 k/uL (3.8-10.6)
[2023-03-21 08:09] LABS: African American GFR (CKD) >90 (>60 ml/min/1.73 sqM); Anion Gap 8 mmol/L; Blood Urea Nitrogen 3 mg/dL (9-20); Calcium 8.9 mg/dL (8.4-10.2); Carbon Dioxide 25 mmol/L (22-30); Chloride 103 mmol/L (98-107); Glucose 89 mg/dL (74-99); Magnesium 1.6 mg/dL (1.6-2.3); Non-African American GFR(CKD) >90 (>60 ml/min/1.73 sqM); Potassium 3.6 mmol/L (3.5-5.1); Sodium 136 mmol/L (137-145)
[2023-03-21] MEDS: VANCOMYCIN 125 MG CAPSULE PO SCH ×4 (08:34→20:33)
[2023-03-21] MEDS: RIVAROXABAN 20 MG TAB PO SCH (08:34)
[2023-03-21] MEDS: PANTOPRAZOLE 40 MG TABLET PO SCH (08:34)
[2023-03-21] MEDS: metroNIDAZOLE-NS PMX 500 MG in SALINE 1 100ML.BAG IVPB SCH ×3 (08:34→23:45)
[2023-03-21] MEDS: atenoloL 50 MG TAB PO SCH (13:02)
[2023-03-21] MEDS: CHLORTHALIDONE 25 MG TAB PO SCH (13:02)
[2023-03-21] MEDS: allopurinoL 300 MG TAB PO SCH (13:02)
[2023-03-21] MEDS: lisinopriL 10 MG TAB PO SCH (13:02)
--- NOTE | 2023-03-21 14:18 | P.PN ---
Subjective Progress Note Date: 03/21/23 Principal diagnosis: diarrhea Patient still having diarrhea virtually every hour. Still with loose stools. No nausea or vomiting. No fevers. Objective - Vital Signs Vital signs: Vital Signs Temp 98.7 F 03/21/23 07:20 Pulse 62 03/21/23 07:20 Resp 18 03/21/23 07:20 BP 111/71 03/21/23 07:20 Pulse Ox 96 03/21/23 07:20 FiO2 Intake & Output 03/20/23 03/21/23 03/21/23 18:59 06:59 18:59 Intake Total 180 850 Balance 180 850 Intake: Intake, IV Titration 850 Amount Sodium Chloride 0.9% 1, 750 000 ml @ 75 mls/hr IV . [id number] [facility] Rx#:[id number] metroNIDAZOLE-NS PMX 500 100 mg In Saline 1 100ml.bag @ 100 mls/hr IVPB Q8HR [facility] Rx#:[id number] Oral 180 Other: # Voids 8 # Bowel Movements 5 - Exam Vital signs reviewed General: nontoxic, no distress, appears at stated age Cardiovascular: S1S2 reg, no murmur, positive posterior tibial pulse bilateral, Lungs: CTA bilateral, no rhonchi, no rales , no accessory muscle use Abdominal: soft, + tender to palpation diffusely, no guarding, no appreciable organomegaly Ext: no gross muscle atrophy, no edema, no contractures Neuro: CN II-XI grossly intact, no focal neuro deficits Psych: Alert, oriented, appropriate affect - Labs CBC & Chem 7: 03/21/23 07:20 03/21/23 07:20 Labs: Abnormal Lab Results - Last 24 Hours (Table) 03/21/23 03/21/23 Range/Units 07:20 07:20 RBC 3.64 L (4.30-5.90) m/uL Hgb 11.6 L (13.0-17.5) gm/dL Hct 35.1 L (39.0-53.0) % Sodium 136 L (137-145) mmol/L BUN 3 L (9-20) mg/dL Creatinine 0.62 L (0.66-1.25) mg/dL Microbiology - Last 24 Hours (Table) 03/19/23 01:12 Stool Culture - Preliminary Stool Assessment and Plan Plan: Assessment: Acute colitis with sepsis, suspect C. diff Leukocytosis resolved HTN HLD GERD Gout Imaging: None New Data Review: Vital sign reviewed Laboratory analysis shows white blood cell, of 9.9, hemoglobin 11.6, sodium 136, carbon dioxide 25, creatinine 0.62, glucose 89. C. diff testing was negative. Plan: - Repeat C diff testing as clinical scenario is most consistent with C diff colitis. - Advance diet, re importance of nutrition in light of C.diff - Leukocytosis resolved. - outpatient follow-up with GI in 4-6 weeks for colonoscopy. - Dilaudid 1 mg IV q4H prn - IV fluids to 75 cc/hr - Allopurinol 300 mg daily, atenolol 50 mg daily, chlorthalidone 25 mg daily, lisinopril 10 mg daily, Protonix 40 mg daily, rinsing Xarelto 20 mg daily - Continue with Vanco 125 mg by mouth 3 times daily and metronidazole 500 mg IV 3 times daily - due to sepsis and diarrhea will need repeat CBC and BMP in AM DVT prophylaxis: xarelto Anticipated discharge date: pending clinical course Anticipated discharge place: pending clinical course
[2023-03-22] MEDS: metroNIDAZOLE-NS PMX 500 MG in SALINE 1 100ML.BAG IVPB SCH ×3 (08:20→23:29)
[2023-03-22] MEDS: HYDROmorphone 1 MG/ML 1 ML SYRINGE IVP PRN ×3 (08:20→20:48)
[2023-03-22] MEDS: PANTOPRAZOLE 40 MG TABLET PO SCH (08:20)
[2023-03-22] MEDS: RIVAROXABAN 20 MG TAB PO SCH (08:21)
[2023-03-22] MEDS: VANCOMYCIN 125 MG CAPSULE PO SCH ×4 (08:21→20:51)
[2023-03-22 08:37] LABS: Basophils # (A) 0.05 X 10*3/uL (0.00-0.10); Basophils % (A) 0.5 %; Eosinophils # (A) 0.58 X 10*3/uL (0.04-0.35); Eosinophils % (A) 5.9 %; HCT 34.7 % (39.6-50.0); HGB 11.1 g/dL (13.0-17.0); Immature Grans, Automated 0.6 %; Lymphocytes # (A) 2.23 X 10*3/uL (0.90-5.00); Lymphocytes % (A) 22.7 %; MCH 30.9 pg (27.0-32.0); MCV 96.7 fL (80.0-97.0); Mean Platelet Volume 10.4 fL (9.5-12.2); Monocytes # (A) 0.99 X 10*3/uL (0.20-1.00); Monocytes % (A) 10.1 %; NRBC Per 100 WBC 0 /100 WBCS (0.0-0.0); Neutrophils # (A) 5.91 X 10*3/uL (1.80-7.70); Neutrophils % (A) 60.2 %; Platelet Count 345 X 10*3/uL (140-440); RBC 3.59 X 10*6/uL (4.40-5.60); WBC 9.82 X 10*3/uL (4.50-10.00)
[2023-03-22 10:55] LABS: African American GFR (CKD) 116.4 (60.0-200.0); Anion Gap 11.6 mmol/L (10.00-18.00); BUN/Creat Ratio 7.14 Ratio (12.00-20.00); Calcium 9.3 mg/dL (8.7-10.3); Carbon Dioxide 24.4 mmol/L (20.0-27.5); Magnesium 1.5 mg/dL (1.5-2.4); Non-African American GFR(CKD) 100.4 (60.0-200.0); Potassium 3.3 mmol/L (3.5-5.5)
[2023-03-22] MEDS: atenoloL 50 MG TAB PO SCH (11:58)
[2023-03-22] MEDS: lisinopriL 10 MG TAB PO SCH (11:59)
[2023-03-22] MEDS: CHLORTHALIDONE 25 MG TAB PO SCH (11:59)
[2023-03-22] MEDS: allopurinoL 300 MG TAB PO SCH (11:59)
[2023-03-22] MEDS: HYDROcodone/APAP 10-325MG 1 EACH TAB PO PRN ×2 (13:20→19:47)
--- NOTE | 2023-03-22 13:28 | P.PN ---
Subjective Progress Note Date: 03/22/23 Patient is a 62-year-old male with hypertension, dyslipidemia, GERD, complicated hospital stay after cholecystectomy which resulted in pneumomediastinum and retroesophageal abscess collection. He was transferred to [facility] and was discharged approximately 2 weeks ago and has been on oral antibiotics. He also required outpatient thoracentesis one week ago. In the ER he underwent an extensive evaluation. CT abdomen and pelvis was completed which showed colitis extending from the cecum to the descending colon with sparing of the sigmoid colon. There was concerns of possible C. diff infection. She was subsequently started on oral vancomycin. C. diff testing did come back negative. She was evaluated by gastroenterology who felt this was likely a false negative as the patient had symptoms consistent with C. diff. IV Flagyl was added. Patient seen and examined at bedside. He reports that he has not had any liquid stool since last night. He does report that after eating yesterday he had significant amounts of abdominal pain. He reports it was about 3 hours later and he felt very distended and bloating with some cramping. He denies any nausea at that time. It is better this morning and he tolerated breakfast okay. He is nervous about the pain. We discussed that people sometimes develop lactose intolerance after significant amounts of diarrhea and that he should try to avoid dairy products. Vital signs reviewed General: nontoxic, no distress, appears at stated age Cardiovascular: S1S2 reg, no murmur, positive posterior tibial pulse bilateral, Lungs: CTA bilateral, no rhonchi, no rales , no accessory muscle use Abdominal: soft, nontender to palpation diffusely, no guarding, no appreciable organomegaly Ext: no gross muscle atrophy, no edema, no contractures Neuro: CN II-XI grossly intact, no focal neuro deficits Psych: Alert, oriented, appropriate affect Assessment: Acute colitis with sepsis, suspect C. diff despite it being negative with clinical history and response to medications. HTN HLD GERD Gout Hypomagnesemia Imaging: None New Data Review: Vital signs reviewed temperature 98.1, pulse 80, respirations 17, blood pressure 118/77, O2 sat 94% on room air Laboratory analysis reviewed from today. Significant changes show hemoglobin 11.1 (11.6 on 03/21/23), potassium 3.3, 5, magnesium 1.5. Repeat C. diff yesterday was negative. Magnesium 1.5 Plan: -Potassium 20 mEq IV piggyback 1 now, magnesium 3 g IV piggyback line-continue with Dilaudid -Add [place] 10/325 as needed for pain -Transition to lactose free diet -Initial plan had been for discharge today but he had significant amounts of pain after lunch. We'll observe for an additional 24 hours and repeat abdominal x-ray to ensure no signs of toxic megacolon this patient stopped stooling. Repeat C diff testing as clinical scenario is most consistent with C diff colitis. -Start lactobacillus BID - outpatient follow-up with GI in 4-6 weeks for colonoscopy. - Dilaudid 1 mg IV q3H - Stop IV fluids - Allopurinol 300 mg daily, atenolol 50 mg daily, chlorthalidone 25 mg daily, lisinopril 10 mg daily, Protonix 40 mg daily, rinsing Xarelto 20 mg daily - Continue with Vanco 125 mg by mouth 3 times daily and metronidazole 500 mg IV 3 times daily - due to sepsis and clear liquid diet will need repeat CBC and BMP in AM DVT prophylaxis: xarelto Anticipated discharge date: pending clinical course Anticipated discharge place: pending clinical course This dictation was prepared using [employer] voice recognition software. Though every attempt is made to correct errors during during dictation some may still exist. Objective - Vital Signs Vital signs: Vital Signs Temp 98.1 F 03/22/23 08:00 Pulse 80 03/22/23 08:21 Resp 17 03/22/23 08:21 BP 118/77 03/22/23 08:00 Pulse Ox 94 L 03/22/23 08:00 FiO2 Intake & Output 03/21/23 03/22/23 03/22/23 18:59 06:59 18:59 Intake Total 850 Balance 850 Intake: Intake, IV Titration 850 Amount Sodium Chloride 0.9% 1, 750 000 ml @ 75 mls/hr IV . [id number] [facility] Rx#:[id number] metroNIDAZOLE-NS PMX 500 100 mg In Saline 1 100ml.bag @ 100 mls/hr IVPB Q8HR [facility] Rx#:[id number] Other: # Voids 2 2 - Labs CBC & Chem 7: 03/22/23 04:29 03/22/23 04:29 Labs: Abnormal Lab Results - Last 24 Hours (Table) 03/22/23 03/22/23 Range/Units 04:29 04:29 RBC 3.59 L (4.40-5.60) X 10*6/uL Hgb 11.1 L (13.0-17.0) g/dL Hct 34.7 L (39.6-50.0) % Immature Gran # 0.06 H (0.00-0.04) X 10*3/uL Eosinophils # 0.58 H (0.04-0.35) X 10*3/uL Potassium 3.3 L (3.5-5.5) mmol/L BUN 5.0 L (9.0-27.0) mg/dL BUN/Creatinine Ratio 7.14 L (12.00-20.00) Ratio Microbiology - Last 24 Hours (Table) 03/19/23 01:12 Stool Culture - Final Stool
--- NOTE | 2023-03-22 13:44 | XR ---
EXAMINATION TYPE: XR abdomen 2V DATE OF EXAM: 03/22/2023 COMPARISON: NONE HISTORY: Pain TECHNIQUE: Single supine KUB image of the abdomen is obtained FINDINGS: Small bowel demonstrates no evidence for dilatation or air fluid levels. Gas and fecal material is seen in non-distended colon. No convincing evidence for pneumoperitoneum. No unusual calcifications. The lung bases are clear. The osseous structures are intact. IMPRESSION: 1. Overall nonobstructive bowel gas pattern.
[2023-03-22] MEDS ORDERED: POTASSIUM CHLORIDE 20 MEQ in WATER FOR INJECTION 1 100ML.BAG IVPB ONE (14:00)
[2023-03-22] MEDS: MAGNESIUM SULFATE-D5W PMX 1 GM in DEXTROSE/WATER 1 100ML.BAG IVPB SCH ×3 (14:19→16:39)
[2023-03-22] MEDS: LACTOBACILLUS ACIDOPH & BULGAR 1 EACH PACKET PO SCH (20:50)
[2023-03-22] MEDS: SODIUM CHLORIDE 0.9% 1,000 ML IV SCH (22:56)
[2023-03-23] MEDS: HYDROcodone/APAP 10-325MG 1 EACH TAB PO PRN ×2 (01:07→09:39)
[2023-03-23] MEDS: HYDROmorphone 1 MG/ML 1 ML SYRINGE IVP PRN (01:08)
[2023-03-23 07:56] VITALS: BP 127/74; PULSE 73; RESP 16; TEMP 98.1
[2023-03-23] MEDS: RIVAROXABAN 20 MG TAB PO SCH (08:13)
[2023-03-23] MEDS: PANTOPRAZOLE 40 MG TABLET PO SCH (08:13)
[2023-03-23] MEDS: LACTOBACILLUS ACIDOPH & BULGAR 1 EACH PACKET PO SCH (08:13)
[2023-03-23] MEDS: metroNIDAZOLE-NS PMX 500 MG in SALINE 1 100ML.BAG IVPB SCH (08:14)
[2023-03-23] MEDS: VANCOMYCIN 125 MG CAPSULE PO SCH (08:14)
[2023-03-23] MEDS ORDERED: POTASSIUM CHLORIDE 10 MEQ in WATER FOR INJECTION 1 100ML.BAG IVPB SCH (08:15)
[2023-03-23] MEDS ORDERED: POTASSIUM CHLORIDE ER 20 MEQ TAB.ER PO STA (08:55)
--- NOTE | 2023-03-23 13:11 | P.DS ---
Providers Date of admission: 03/18/23 23:48 Expected date of discharge: 03/23/23 Attending physician: Mili Vallejo MD Consults: 03/18/23 23:46 Consult Physician Routine Consulting Provider: Angelica Charles Consult Reason/Comments: Colitis Do you want consulting provider notified?: Yes Primary care physician: Casey Bellamy Hospital Course: Discharge Diagnosis: Acute colitis with sepsis, suspect C. diff clinically given her response to medications HTN HLD GERD Gout Hypomagnesemia Hospital Course: 62-year-old male with hypertension, dyslipidemia, GERD, complicated hospital stay after cholecystectomy which resulted in pneumomediastinum and retroesophageal abscess collection. He was transferred to [facility] and was discharged approximately 2 weeks ago and has been on oral antibiotics. He also required outpatient thoracentesis one week ago. In the ER he underwent an extensive evaluation. CT abdomen and pelvis was completed which showed colitis extending from the cecum to the descending colon with sparing of the sigmoid colon. There was concerns of possible C. diff infection. She was subsequently started on oral vancomycin. C. diff testing did come back negative. She was evaluated by gastroenterology who felt this was likely a false negative as the patient had symptoms consistent with C. diff. IV Flagyl was added. At the time of discharge, abdominal pain has improved, stools are more formed. Only having one bowel movement per day. Patient to be discharged on oral vancomycin. Follow-up with GI in 3-4 weeks. Patient seen and examined at bedside. Vital signs reviewed and stable. General: nontoxic, no distress, appears at stated age Derm: warm, dry, postsurgical incisions clean, dry, intact Head: atraumatic, normocephalic, symmetric Eyes: EOMI, no lid lag, anicteric sclera Mouth: no lip lesion, mucus membranes moist Cardiovascular: S1S2 reg, no murmur Lungs: CTA bilateral, no rhonchi, no rales , no accessory muscle use Abdominal: soft, nontender to palpation, no guarding, no appreciable organomegaly Ext: no gross muscle atrophy, no edema, no contractures Neuro: CN II-XI grossly intact, no focal neuro deficits Psych: Alert, oriented, appropriate affect A total of 36 minutes of time were spent preparing this complex discharge summary. Patient was discharged on 03/23/23 at 1045. Patient Condition at Discharge: Stable Plan - Discharge Summary Discharge Rx Participant: No New Discharge Prescriptions: New Lactobacillus Acidoph & Bulgar [Lactinex] 1 each PO BID #14 packet Vancomycin 125 mg PO QID #24 cap Continue Atenolol/Chlorthalidone [Atenolol/Chlorthalidone 50-25] 1 tab PO W/LUNCH allopurinoL [Zyloprim] 300 mg PO W/LUNCH Fenofibrate Nanocrystallized [Fenofibrate] 145 mg PO W/LUNCH Acetaminophen Tab [Tylenol] 1,000 mg PO Q6HR PRN PRN Reason: Pain Or Fever > 100.5 Rivaroxaban [Xarelto] 20 mg PO DAILY lisinopriL [Prinivil] 10 mg PO W/LUNCH Pantoprazole [Protonix] 40 mg PO DAILY Discontinued Amoxic-Pot Clav 875-125Mg [Augmentin 875-125] 1 tab PO Q12HR 3 Days #6 tab Discharge Medication List Atenolol/Chlorthalidone [Atenolol/Chlorthalidone 50-25] 1 tab PO W/LUNCH 07/13/18 [History] allopurinoL [Zyloprim] 300 mg PO W/LUNCH 07/13/18 [History] Fenofibrate Nanocrystallized [Fenofibrate] 145 mg PO W/LUNCH 02/15/23 [History] lisinopriL [Prinivil] 10 mg PO W/LUNCH 02/15/23 [History] Acetaminophen Tab [Tylenol] 1,000 mg PO Q6HR PRN 03/18/23 [History] Pantoprazole [Protonix] 40 mg PO DAILY 03/18/23 [History] Rivaroxaban [Xarelto] 20 mg PO DAILY 03/18/23 [History] Lactobacillus Acidoph & Bulgar [Lactinex] 1 each PO BID #14 packet 03/23/23 [Rx] Vancomycin 125 mg PO QID #24 cap 03/23/23 [Rx] Follow up Appointment(s)/Referral(s): Casey Bellamy MD [Primary Care Provider] - 1-2 days (office not answering Please call to schedule appointment ) Angelica Charles MD [STAFF PHYSICIAN] - 3 Weeks (Call Primary doctors to get a referral sent to office) Patient Instructions/Handouts: Abdominal Pain (ED), Colitis (ED) Activity/Diet/Wound Care/Special Instructions: Please see your PCP and GI. Discharge Disposition: HOME SELF-CARE
== END 2023-03-23 11:43 | disposition home or self-care (01) | DRG 872 ==
LOC: EC 17:14 → 4SSUR 23:48
PROVIDERS: ADMIT Internal Medicine; ATTEND Internal Medicine
DX: A41.89 Other specified sepsis (principal); A04.72 Enterocolitis due to Clostridium difficile, not specified as recurrent; J90 Pleural effusion, not elsewhere classified; E78.5 Hyperlipidemia, unspecified; E83.42 Hypomagnesemia; I10 Essential (primary) hypertension; K21.9 Gastro-esophageal reflux disease without esophagitis; K57.30 Diverticulosis of large intestine without perforation or abscess without bleeding; M10.9 Gout, unspecified; Z79.01 Long term (current) use of anticoagulants; Z79.899 Other long term (current) drug therapy; Z90.49 Acquired absence of other specified parts of digestive tract; Z88.6 Allergy status to analgesic agent
CPT/HCPCS: 36415; 71260; 74019; 74177; 80048; 80053; 81001; 82150; 83605; 83690; 83735; 84100; 85025; 85027; 86140; 87045; 87046; 87324